=== PATIENT | female | born 1960 | race Caucasian/White ===

== ENCOUNTER → 2018-01-03 | Outpatient (CLI) | payer BC ==
[2018-01-03 14:26] LABS: Basophils % (A) 1 %; Eosinophils # (A) 0.2 k/uL (0-0.7); Eosinophils % (A) 2 %; HGB 16.5 gm/dL (11.4-16.0); Lymphocytes # (A) 2.6 k/uL (1.0-4.8); Lymphocytes % (A) 37 %; MCH 30.5 pg (25.0-35.0); MCHC 32.9 g/dL (31.0-37.0); MCV 92.5 fL (80.0-100.0); Mean Platelet Volume 6.8; Monocytes # (A) 0.5 k/uL (0-1.0); Monocytes % (A) 7 %; Neutrophils # (A) 3.6 k/uL (1.3-7.7); Neutrophils % (A) 51 %; Platelet Count 292 k/uL (150-450); RBC 5.41 m/uL (3.80-5.40); RDW 12.8 % (11.5-15.5); WBC 7.1 k/uL (3.8-10.6)
[2018-01-03 14:33] LABS: Potassium 3.8 mmol/L (3.5-5.1)
[2018-01-03 18:16] LABS: Albumin 4.5 g/dL (3.5-5.0); Calcium 9.9 mg/dL (8.4-10.2); Total Bilirubin 0.7 mg/dL (0.2-1.3)
== END | disposition home or self-care (01) ==
LOC: LABPAT 14:03
PROVIDERS: ATTEND Orthopaedic Surgery
DX: Z01.810 Encounter for preprocedural cardiovascular examination (principal); I10 Essential (primary) hypertension; M23.92 Unspecified internal derangement of left knee; Z01.812 Encounter for preprocedural laboratory examination
CPT/HCPCS: 80053; 82150; 83690; 85025; 93005

== ENCOUNTER 2018-01-06 09:17 | Day surgery (SDC) | payer BC ==
[2018-01-03 12:11] VITALS: BMI 30.4
--- NOTE | 2018-01-05 16:34 | HP ---
HISTORY AND PHYSICAL Surgery is scheduled for 01/06/18. Noemí Nye is a 57-year-old patient seen with progressive left knee pain. We discussed treatment options. She elected to proceed with left knee arthroscopy. Consent was obtained. PAST MEDICAL HISTORY: Asthma, hypertension, gastroesophageal reflux disease. PAST SURGICAL HISTORY: section, foot surgery. MEDICATIONS: Albuterol, estradiol, Flonase, Klonopin, lisinopril, Neurontin, Prozac, Singulair. ALLERGIES: CEFTIN, AVELOX, MONISTAT. SOCIAL HISTORY: The patient denies current tobacco use. PHYSICAL EXAMINATION: Evaluation of the left knee: Range of motion 0 to 120 degrees. Mild effusion. Tenderness medial joint line. Positive medial Niall's. Ligaments stable. Hip rotation without pain. Distal neurovascular exam intact. RADIOGRAPHS: Radiographs of the left knee revealed mild medial, lateral, moderate patellofemoral compartment osteoarthritis. MRI left knee revealed medial meniscal tear, patellofemoral joint osteoarthritis and joint effusion. IMPRESSION: Internal derangement, left knee with medial meniscal tear. PLAN: Left knee arthroscopy with partial meniscectomy and debridement. MMODL / IJN: [id number] /
[~2018-01-06 09:17] MED LIST: DEXAMETHASONE SOD PHOSPHATE 10 MG/ML 1 ML VIAL IV ONE; LACTATED RINGERS 1,000 ML IV SCH; MIDAZOLAM 2 MG/2 ML VIAL IV PRN; ONDANSETRON 4 MG/2 ML VIAL IVP ONE; Pre Op ABX Message 1 EACH MISC MISCELLANE ONE
[2018-01-06] MEDS ORDERED: CLINDAMYCIN 600 MG in DEXTROSE 5% IN WATER 50 ML IVPB STA ×2 (09:30)
[2018-01-06] MEDS ORDERED: LIDOCAINE 1% 20 ML VIAL (10MG/ML) FOR IV START INTRADERMA ONE (09:43)
[2018-01-06] MEDS ORDERED: SODIUM CHLORIDE 0.9% 1,000 ML IV ONE (10:51)
[2018-01-06] MEDS ORDERED: BUPIVACAINE (PF) 0.25% 30 ML VIAL SQ ONE ×2 (11:31→12:15)
[2018-01-06] MEDS ORDERED: SUCCINYLCHOLINE CHLORIDE VIAL 200 MG/10 ML VIAL IV ONE (11:46)
[2018-01-06] MEDS ORDERED: PHENYLEPHRINE-0.9% NACL SYG 1 MG/10 ML SYRINGE ONE (11:46)
[2018-01-06] MEDS ORDERED: PROPOFOL 10 MG/ML 20 ML VIAL IV ONE (11:46)
[2018-01-06] MEDS ORDERED: fentaNYL (PF) 50 MCG/ML 2 ML AMP ONE (11:46)
[2018-01-06] MEDS ORDERED: LIDOCAINE 1% INJ 10MG/ML (20 ML MDV) ONE (11:46)
[2018-01-06] MEDS ORDERED: MIDAZOLAM 2 MG/2 ML VIAL ONE (11:46)
--- NOTE | 2018-01-06 12:31 | P.OP ---
Date of Procedure: 01/06/18 Preoperative Diagnosis: Internal derangement left knee Postoperative Diagnosis: 1. Tear medial and lateral meniscus left knee 2. Grade 2 chondromalacia medial femoral condyle left knee 3. Grade 4 chondromalacia patellofemoral joint left knee 4. Reactive synovitis medial and suprapatellar compartments left knee Procedure(s) Performed: 1. Arthroscopic partial medial and lateral meniscectomy left knee 2. Arthroscopic chondroplasty medial femoral condyle left knee 3. Arthroscopic chondroplasty patellofemoral joint left knee 4. Arthroscopic partial synovectomy medial and suprapatellar compartments left knee Anesthesia: VINNIEA, local Surgeon: Jose Plata Estimated Blood Loss (ml): 10 Pathology: none sent Condition: stable Disposition: PACU Indications for Procedure: 57-year-old patient seen with progressive left knee pain. After treatment options were discussed, she elected to proceed with arthroscopy. Operative Findings: see description of procedure Description of Procedure: Patient was taken to the operative suite. Patient underwent a general anesthetic by the department of anesthesia. Patient was given preoperative antibiotics. The left lower extremity was placed in a well-padded arthroscopic leg bose. The left leg was prepped and draped in the normal sterile orthopedic fashion. A lateral parapatellar and suprapatellar incision was made. Trochars were inserted. Arthroscopy was initiated. Suprapatellar pouch revealed diffuse thick reactive synovitis. The patellofemoral joint appeared to articulate congruently. There was grade 4 chondromalacia of both the patella and femoral sulcus. There was exposed bony areas on both sides as well as peripheral osteochondral tears present.. The scope was guided into the medial gutter. No loose bodies or plica was identified. The scope was then guided into the medial compartment. A medial parapatellar incision was made. Trocar inserted followed by probe. there was tearing of the mid body and posterior horn medial meniscus. There was an area of grade 2 chondromalacia medial femoral condyle centrally with some osteochondral tears present. There was reactive synovitis anteriorly. I performed a partial medial meniscectomy down to stable tissue. I performed a chondroplasty of the medial femoral condyle down to stable tissue. I performed a partial synovectomy. The residual meniscus was stable. The residual osteochondral surface was stable. Scope and probe were then guided into the intercondylar notch. Cruciates were identified, probed and found to be stable. The scope and probe were then guided into lateral compartment. There was some radial tears in the midbody of the lateral meniscus. There was no significant chondromalacia present. No reactive synovitis. I performed a partial lateral meniscectomy down to stable tissue. The residual meniscus was stable. The scope was in guided back into the suprapatellar compartment. I introduced a motorized shaver into the suprapatellar compartment. I debrided some piecemeal fragments of meniscus I encountered. I performed a chondroplasty of the patella and femoral sulcus down to stable peripheral osteochondral tissue. I performed a partial synovectomy. The residual osteochondral surfaces appears stable we again did no exposed bony areas of both the patella and femoral sulcus. I took one more look around the entire knee, no residual debris. Instruments were now removed from the joint. The joint was infiltrated with .25% Marcaine. Steri-Strips were applied to the portal sites. Sterile dressings were applied. The patient was placed into a VIVIEN hose. No tourniquet was utilized. The patient was awakened, transferred to a bed and taken to recovery stable satisfactory condition.
[2018-01-06 12:43] VITALS: TEMP 96.8
[2018-01-06] MEDS: HYDROmorphone 0.5 MG/0.5 ML SYRINGE IVP PRN ×2 (12:52→13:01)
[2018-01-06 13:46] VITALS: RESP 16
[2018-01-06] MEDS ORDERED: HYDROcodone/APAP 5-325MG 1 EACH TAB PO ONE (13:53)
[2018-01-06 14:04] VITALS: BP 105/65; PULSE 64
== END 2018-01-06 14:51 | disposition home or self-care (01) ==
LOC: OR 09:17
PROVIDERS: ATTEND Orthopaedic Surgery
DX: S83.242A Other tear of medial meniscus, current injury, left knee, initial encounter (principal); S83.282A Other tear of lateral meniscus, current injury, left knee, initial encounter; X58.XXXA Exposure to other specified factors, initial encounter; M22.42 Chondromalacia patellae, left knee; M65.862 Other synovitis and tenosynovitis, left lower leg; J45.909 Unspecified asthma, uncomplicated; I10 Essential (primary) hypertension; K21.9 Gastro-esophageal reflux disease without esophagitis; E78.5 Hyperlipidemia, unspecified; N28.9 Disorder of kidney and ureter, unspecified; F41.9 Anxiety disorder, unspecified; F32.9 Major depressive disorder, single episode, unspecified; Z79.890 Hormone replacement therapy; Z79.51 Long term (current) use of inhaled steroids; Z79.891 Long term (current) use of opiate analgesic; Z79.899 Other long term (current) drug therapy; Z88.1 Allergy status to other antibiotic agents; Z88.8 Allergy status to other drugs, medicaments and biological substances
CPT/HCPCS: 29880; J2250; J0330; J1100; J2405; J2001; J3010; J2370; J2704; J1170

== ENCOUNTER → 2018-07-08 | Outpatient (CLI) | payer BC ==
--- NOTE | 2018-07-18 11:14 | MM ---
Reason for exam: screening (asymptomatic). Last mammogram was performed 6 years and 4 months ago. History: Patient had first child at age 31. Physical Findings: A clinical breast exam by your physician is recommended on an annual basis and results should be correlated with mammographic findings. MG 3D Screening Mammo W/Cad Bilateral CC and MLO view(s) were taken. Prior study comparison: June 22, 2008, bilateral digital screening mammogram. There are scattered fibroglandular densities. No suspicious abnormality. Anterior depth left lateral asymmetry is similar to 2008 as are left lower inner calcifications. ASSESSMENT: Benign, BI-RAD 2 RECOMMENDATION: Routine screening mammogram of both breasts in 1 year.
== END | disposition home or self-care (01) ==
LOC: RADMAMWWP 08:25
PROVIDERS: ATTEND Family Medicine
DX: Z12.31 Encounter for screening mammogram for malignant neoplasm of breast (principal)
CPT/HCPCS: 77063; 77067

== ENCOUNTER → 2020-06-21 | Outpatient (CLI) | payer BC ==
--- NOTE | 2020-06-21 10:03 | US ---
EXAMINATION TYPE: US abdomen limited DATE OF EXAM: 06/21/2020 COMPARISON: NONE CLINICAL HISTORY: 59-year-old female R74.89 Elevated liver enzymes. TECHNIQUE: Multiple sonographic images of the right upper quadrant are obtained. FINDINGS: EXAM MEASUREMENTS: Liver Length: 21.5 cm CBD: 0.3 cm Right Kidney: 12.1 x 4.2 x 5.2 cm Pancreas: wnl, tail obscured by overlying bowel gas Liver: Enlarged and echogenic, mildly attenuating. No focal lesion seen. Gallbladder: Surgically absent Evidence for sonographic Casillas's sign: No CBD: wnl Right Kidney: No hydronephrosis. IMPRESSION: Hepatomegaly (21.5 cm) with at least moderate hepatic steatosis. Status post cholecystectomy. No bili hanna ductal dilatation.
== END | disposition home or self-care (01) ==
LOC: RADUSWWP 08:51
PROVIDERS: ATTEND Family Medicine
DX: K76.0 Fatty (change of) liver, not elsewhere classified (principal); Z90.49 Acquired absence of other specified parts of digestive tract; R16.0 Hepatomegaly, not elsewhere classified
CPT/HCPCS: 76705

== ENCOUNTER → 2020-08-02 | Outpatient (CLI) | payer BC ==
--- NOTE | 2020-08-06 13:49 | MM ---
Reason for exam: screening (asymptomatic). Last mammogram was performed 2 years and 1 month ago. History: Patient had first child at age 31. Physical Findings: A clinical breast exam by your physician is recommended on an annual basis and results should be correlated with mammographic findings. MG Screening Mammo w CAD Bilateral CC and MLO view(s) were taken. Prior study comparison: July 08, 2018, bilateral MG 3d screening mammo w/cad. March 14, 2012, bilateral digital screening mammo w/CAD. There are scattered fibroglandular densities. There is chronic nodularity in the right breast. No significant changes when compared with prior studies. ASSESSMENT: Benign, BI-RAD 2 RECOMMENDATION: Routine screening mammogram of both breasts in 1 year.
== END | disposition home or self-care (01) ==
LOC: RADMAMWWP 08:55
PROVIDERS: ATTEND Family Medicine
DX: Z12.31 Encounter for screening mammogram for malignant neoplasm of breast (principal)
CPT/HCPCS: 77067

== ENCOUNTER 2021-10-23 01:46 | Emergency (ER) | payer BC ==
[2021-10-23] MEDS ORDERED: SODIUM CHLORIDE 0.9% 1,000 ML IV STA (02:12)
--- NOTE | 2021-10-23 02:13 | ED ---
Arrhythmia/Palpitations HPI - General Chief Complaint: Arrhythmia/Palpitations Stated Complaint: Palpitations Time Seen by Provider: 10/23/21 02:12 Source: patient Mode of arrival: wheelchair Limitations: no limitations - Related Data Home Medications Medication Instructions Recorded Confirmed ARIPiprazole [Abilify] 5 mg PO HS 09/23/15 01/03/18 Albuterol Inhaler (Mhu) [Ventolin 2 puff INHALATION Q4-6H PRN 09/23/15 01/03/18 Inhaler] Albuterol Nebulized [Ventolin 2.5 mg INHALATION Q6H PRN 09/23/15 01/06/18 Nebulized] Benztropine Mesylate [Cogentin] 0.5 mg PO BID 09/23/15 01/06/18 Budesonide-Formot 160-4.5 Mcg 2 puff INHALATION BID 09/23/15 01/06/18 [Symbicort 160-4.5 Mcg Inhaler] Fexofenadine HCl [Joanna Allergy] 180 mg PO DAILY 09/23/15 01/03/18 Fluticasone Nasal [place] [Flonase 2 spr INTRANASAL DAILY 09/23/15 01/03/18 Nasal [place]] clonazePAM [KlonoPIN] 0.5 mg PO BID PRN 09/23/15 01/06/18 diphenhydrAMINE [Benadryl] 25 mg PO DIRECTED PRN 09/23/15 01/06/18 lamoTRIgine [LaMICtal] 100 mg PO QAM 09/23/15 01/03/18 Aspirin [Adult Low Dose Aspirin EC] 81 mg PO DAILY 01/03/18 01/03/18 Atorvastatin [Lipitor] 20 mg PO DAILY 01/03/18 01/03/18 Cholecalciferol (Vitamin D3) 2,000 unit PO DAILY 01/03/18 01/03/18 [Vitamin D3] Omeprazole 20 mg PO HS 01/03/18 01/03/18 lisinopriL [Zestril] 30 mg PO QAM 01/03/18 01/06/18 Previous Rx's Medication Instructions Recorded Omeprazole [PriLOSEC] 20 mg PO AC-BRKFST capsule. 04/23/15 Hydrocodone/Acetaminophen [[place] 1 each PO Q6HR PRN #30 tab 09/26/15 5-325] HYDROcodone/APAP 7.5-325MG [[place] 1 tab PO Q6HR PRN #30 tab 01/06/18 7.5-325] Allergies Allergy/AdvReac Type Severity Reaction Status Date / Time cefuroxime axetil Allergy Anaphylaxis Verified 10/23/21 02:04 [From Ceftin] moxifloxacin HCl Allergy Rash/Hives Verified 10/23/21 02:04 [From Avelox] tioconazole Allergy Rash/Hives Verified 10/23/21 02:04 [From Monistat 1 (tioconazole)] Review of Systems ROS Statement: Those systems with pertinent positive or pertinent negative responses have been documented in the HPI. ROS Other: All systems not noted in ROS Statement are negative. Past Medical History Past Medical History: Atrial Fibrillation, Asthma, Fibromyalgia, GERD/Reflux, Hyperlipidemia, Hypertension, Osteoarthritis (OA), Sleep Apnea/CPAP/BIPAP Additional Past Medical History / Comment(s): Hx sinusititis with fluid on the ear, ulcers, IBS, degenerative tendonistis, bursitis, neuropathy. "Sees Dr Mendez every 6 months for strong family history of cardiac problems and her own hx of triple heartbeat and palpitations." Currently ill with the stomach flu, has appointment with Dr marks to see if still ok to proceed with surgery. History of Any Multi-Drug Resistant Organisms: None Reported Past Surgical History: Section, Cholecystectomy, Hernia Repair, Hysterectomy Additional Past Surgical History / Comment(s): Section X3, sinus surgery, foot surgery, colonoscopy, D&C. 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 fib with RVR 144 QRS 88 QTc 470 Medical Decision Making - Lab Data Result diagrams: 10/23/21 02:27 10/23/21 02:27 Lab Results 10/23/21 10/23/21 10/23/21 Range/Units 02:27 02: 02:27 WBC 11.1 H (3.8-10.6) k/uL RBC 4.76 (3.80-5.40) m/uL Hgb 15.3 (11.4-16.0) gm/dL Hct 44.6 (34.0-46.0) % MCV 93.7 (80.0-100.0) fL MCH 32.0 (25.0-35.0) pg MCHC 34.2 (31.0-37.0) g/dL RDW 13.1 (11.5-15.5) % Plt Count 301 (150-450) k/uL MPV 7.3 Neutrophils % 52 % Lymphocytes % 33 % Monocytes % 5 % Eosinophils % 7 % Basophils % 1 % Neutrophils # 5.7 (1.3-7.7) k/uL Lymphocytes # 3.7 (1.0-4.8) k/uL Monocytes # 0.6 (0-1.0) k/uL Eosinophils # 0.8 H (0-0.7) k/uL Basophils # 0.1 (0-0.2) k/uL PT 10.5 (9.0-12.0) sec INR 1.0 (<1.2) APTT 20.9 L (22.0-30.0) sec Sodium (137-145) mmol/L Potassium (3.5-5.1) mmol/L Chloride (98-107) mmol/L Carbon Dioxide (22-30) mmol/L Anion Gap mmol/L BUN (7-17) mg/dL Creatinine (0.52-1.04) mg/dL Est GFR (CKD-EPI)AfAm (>60 ml/min/1.73 sqM) Est GFR (CKD-EPI)NonAf (>60 ml/min/1.73 sqM) Glucose (74-99) mg/dL Plasma Lactic Acid Laith (0.7-2.0) mmol/L Calcium (8.4-10.2) mg/dL Phosphorus (2.5-4.5) mg/dL Magnesium (1.6-2.3) mg/dL Total Bilirubin (0.2-1.3) mg/dL AST (14-36) U/L ALT (4-34) U/L Alkaline Phosphatase (38-126) U/L Troponin I (0.000-0.034) ng/mL NT-Pro-B Natriuret Pep pg/mL Total Protein (6.3-8.2) g/dL Albumin (3.5-5.0) g/dL Urine Color Light Yellow Urine Appearance Clear (Clear) Urine pH 5.5 (5.0-8.0) Ur Specific [place] 1.005 (1.001-1.035) Urine Protein Negative (Negative) Urine Glucose (UA) Negative (Negative) Urine Ketones Negative (Negative) Urine Blood Negative (Negative) Urine Nitrite Negative (Negative) Urine Bilirubin Negative (Negative) Urine Urobilinogen <2.0 (<2.0) mg/dL Ur Leukocyte Esterase Large H (Negative) Urine RBC 2 (0-5) /hpf Urine WBC 23 H (0-5) /hpf Ur Squamous Epith Cells 1 (0-4) /hpf Urine Bacteria Rare H (None) /hpf 10/23/21 10/23/21 10/23/21 Range/Units 02:27 02:27 02:27 WBC (3.8-10.6) k/uL RBC (3.80-5.40) m/uL Hgb (11.4-16.0) gm/dL Hct (34.0-46.0) % MCV (80.0-100.0) fL MCH (25.0-35.0) pg MCHC (31.0-37.0) g/dL RDW (11.5-15.5) % Plt Count (150-450) k/uL MPV Neutrophils % % Lymphocytes % % Monocytes % % Eosinophils % % Basophils % % Neutrophils # (1.3-7.7) k/uL Lymphocytes # (1.0-4.8) k/uL Monocytes # (0-1.0) k/uL Eosinophils # (0-0.7) k/uL Basophils # (0-0.2) k/uL PT (9.0-12.0) sec INR (<1.2) APTT (22.0-30.0) sec Sodium 137 (137-145) mmol/L Potassium 3.8 (3.5-5.1) mmol/L Chloride 107 (98-107) mmol/L Carbon Dioxide 21 L (22-30) mmol/L Anion Gap 9 mmol/L BUN 17 (7-17) mg/dL Creatinine 0.71 (0.52-1.04) mg/dL Est GFR (CKD-EPI)AfAm >90 (>60 ml/min/1.73 sqM) Est GFR (CKD-EPI)NonAf >90 (>60 ml/min/1.73 sqM) Glucose 125 H (74-99) mg/dL Plasma Lactic Acid Laith 1.6 (0.7-2.0) mmol/L Calcium 10.3 H (8.4-10.2) mg/dL Phosphorus 3.9 (2.5-4.5) mg/dL Magnesium 1.7 (1.6-2.3) mg/dL Total Bilirubin 0.4 (0.2-1.3) mg/dL AST 33 (14-36) U/L ALT 34 (4-34) U/L Alkaline Phosphatase 85 (38-126) U/L Troponin I <0.012 (0.000-0.034) ng/mL NT-Pro-B Natriuret Pep pg/mL Total Protein 6.7 (6.3-8.2) g/dL Albumin 4.4 (3.5-5.0) g/dL Urine Color Urine Appearance (Clear) Urine pH (5.0-8.0) Ur Specific [place] (1.001-1.035) Urine Protein (Negative) Urine Glucose (UA) (Negative) Urine Ketones (Negative) Urine Blood (Negative) Urine Nitrite (Negative) Urine Bilirubin (Negative) Urine Urobilinogen (<2.0) mg/dL Ur Leukocyte Esterase (Negative) Urine RBC (0-5) /hpf Urine WBC (0-5) /hpf Ur Squamous Epith Cells (0-4) /hpf Urine Bacteria (None) /hpf 10/23/21 Range/Units 02:27 WBC (3.8-10.6) k/uL RBC (3.80-5.40) m/uL Hgb (11.4-16.0) gm/dL Hct (34.0-46.0) % MCV (80.0-100.0) fL MCH (25.0-35.0) pg MCHC (31.0-37.0) g/dL RDW (11.5-15.5) % Plt Count (150-450) k/uL MPV Neutrophils % % Lymphocytes % % Monocytes % % Eosinophils % % Basophils % % Neutrophils # (1.3-7.7) k/uL Lymphocytes # (1.0-4.8) k/uL Monocytes # (0-1.0) k/uL Eosinophils # (0-0.7) k/uL Basophils # (0-0.2) k/uL PT (9.0-12.0) sec INR (<1.2) APTT (22.0-30.0) sec Sodium (137-145) mmol/L Potassium (3.5-5.1) mmol/L Chloride (98-107) mmol/L Carbon Dioxide (22-30) mmol/L Anion Gap mmol/L BUN (7-17) mg/dL Creatinine (0.52-1.04) mg/dL Est GFR (CKD-EPI)AfAm (>60 ml/min/1.73 sqM) Est GFR (CKD-EPI)NonAf (>60 ml/min/1.73 sqM) Glucose (74-99) mg/dL Plasma Lactic Acid Laith (0.7-2.0) mmol/L Calcium (8.4-10.2) mg/dL Phosphorus (2.5-4.5) mg/dL Magnesium (1.6-2.3) mg/dL Total Bilirubin (0.2-1.3) mg/dL AST (14-36) U/L ALT (4-34) U/L Alkaline Phosphatase (38-126) U/L Troponin I (0.000-0.034) ng/mL NT-Pro-B Natriuret Pep 54 pg/mL Total Protein (6.3-8.2) g/dL Albumin (3.5-5.0) g/dL Urine Color Urine Appearance (Clear) Urine pH (5.0-8.0) Ur Specific [place] (1.001-1.035) Urine Protein (Negative) Urine Glucose (UA) (Negative) Urine Ketones (Negative) Urine Blood (Negative) Urine Nitrite (Negative) Urine Bilirubin (Negative) Urine Urobilinogen (<2.0) mg/dL Ur Leukocyte Esterase (Negative) Urine RBC (0-5) /hpf Urine WBC (0-5) /hpf Ur Squamous Epith Cells (0-4) /hpf Urine Bacteria (None) /hpf Disposition Clinical Impression: Atrial fibrillation, Tachycardia, Palpitations, Atrial fibrillation with RVR Disposition: HOME SELF-CARE Condition: Good Instructions (If sedation given, give patient instructions): A-fib (Atrial Fibrillation) (ED) Is patient prescribed a controlled substance at d/c from ED?: No Referrals: Alvarado Rousseau MD [Primary Care Provider] - 1-2 days
[2021-10-23] MEDS ORDERED: DILTIAZEM DRIP BOLUS FROM BAG 1 MG SOLN IV ONE (02:33)
[2021-10-23 02:51] VITALS: RESP 18
[2021-10-23 02:51] LABS: Basophils # (A) 0.1 k/uL (0-0.2); Basophils % (A) 1 %; Eosinophils # (A) 0.8 k/uL (0-0.7); Eosinophils % (A) 7 %; HCT 44.6 % (34.0-46.0); HGB 15.3 gm/dL (11.4-16.0); Lymphocytes # (A) 3.7 k/uL (1.0-4.8); Lymphocytes % (A) 33 %; MCHC 34.2 g/dL (31.0-37.0); MCV 93.7 fL (80.0-100.0); Mean Platelet Volume 7.3; Monocytes # (A) 0.6 k/uL (0-1.0); Monocytes % (A) 5 %; Neutrophils # (A) 5.7 k/uL (1.3-7.7); Neutrophils % (A) 52 %; Platelet Count 301 k/uL (150-450); RBC 4.76 m/uL (3.80-5.40); RDW 13.1 % (11.5-15.5); WBC 11.1 k/uL (3.8-10.6)
[2021-10-23 02:55] LABS: Appearance,Urine Clear (Clear); Bacteria,Urine Rare /hpf; Bilirubin,Urine Negative (Negative); Blood,Urine Negative (Negative); Color,Urine Light Yellow; Glucose,Urine (UA) Negative (Negative); Ketones,Urine Negative (Negative); Leukocyte Esterase,Urine Large (Negative); Nitrite,Urine Negative (Negative); PH, Urine 5.5 (5.0-8.0); Protein,Urine Negative (Negative); RBC,Urine 2 /hpf (0-5); Specific Gravity,Urine 1.005 (1.001-1.035); Squamous Epithelial Cell,Urine 1 /hpf (0-4); Urobilinogen,Urine <2.0 mg/dL (<2.0); WBC,Urine 23 /hpf (0-5)
[2021-10-23] MEDS ORDERED: DILTIAZEM 125 MG in SODIUM CHLORIDE 0.9% 100 ML IV SCH (03:00)
[2021-10-23 03:08] LABS: Prothrombin Time 10.5 sec (9.0-12.0)
[2021-10-23 03:09] LABS: Partial Thromboplastin Time 20.9 sec (22.0-30.0)
[2021-10-23 03:13] LABS: ALT 34 U/L (4-34); AST 33 U/L (14-36); African American GFR (CKD) >90 (>60 ml/min/1.73 sqM); Albumin 4.4 g/dL (3.5-5.0); Alkaline Phosphatase 85 U/L (38-126); Anion Gap 9 mmol/L; Blood Urea Nitrogen 17 mg/dL (7-17); Calcium 10.3 mg/dL (8.4-10.2); Carbon Dioxide 21 mmol/L (22-30); Chloride 107 mmol/L (98-107); Glucose 125 mg/dL (74-99); Magnesium 1.7 mg/dL (1.6-2.3); Non-African American GFR(CKD) >90 (>60 ml/min/1.73 sqM); Phosphorus 3.9 mg/dL (2.5-4.5); Potassium 3.8 mmol/L (3.5-5.1); Sodium 137 mmol/L (137-145); Total Bilirubin 0.4 mg/dL (0.2-1.3); Total Protein 6.7 g/dL (6.3-8.2)
[2021-10-23 04:35] VITALS: BP 110/80; PULSE 79; TEMP 97.6
== END 2021-10-23 04:35 | disposition home or self-care (01) ==
LOC: EC 01:46
DX: I48.20 Chronic atrial fibrillation, unspecified (principal); R00.2 Palpitations; R00.0 Tachycardia, unspecified; K21.9 Gastro-esophageal reflux disease without esophagitis; E78.5 Hyperlipidemia, unspecified; J45.909 Unspecified asthma, uncomplicated; I10 Essential (primary) hypertension; M19.90 Unspecified osteoarthritis, unspecified site; F41.9 Anxiety disorder, unspecified; F32.A Depression, unspecified; Z87.891 Personal history of nicotine dependence; Z72.89 Other problems related to lifestyle; Z79.82 Long term (current) use of aspirin; Z79.51 Long term (current) use of inhaled steroids; Z79.899 Other long term (current) drug therapy
CPT/HCPCS: 36415; 80053; 81001; 83605; 83735; 83880; 84100; 84484; 85025; 85610; 85730; 87086; 93005; 96365; 96366; 96375; 99285

== ENCOUNTER → 2022-01-02 | Outpatient (CLI) | payer BC ==
--- NOTE | 2022-01-05 10:03 | MM ---
Reason for exam: screening (asymptomatic). Last mammogram was performed 1 year and 5 months ago. History: Patient is postmenopausal and had first child at age 31. Physical Findings: A clinical breast exam by your physician is recommended on an annual basis and results should be correlated with mammographic findings. MG Screening Mammo w CAD Bilateral CC and MLO view(s) were taken. Prior study comparison: August 02, 2020, bilateral MG screening mammo w CAD. July 08, 2018, bilateral MG 3d screening mammo w/cad. There are scattered fibroglandular densities. Stable benign calcifications. There is no discrete abnormality. No significant changes when compared with prior studies. ASSESSMENT: Benign, BI-RAD 2 RECOMMENDATION: Routine screening mammogram of both breasts in 1 year.
== END | disposition home or self-care (01) ==
LOC: RADMAMWWP 10:57
PROVIDERS: ATTEND Family Medicine
DX: Z12.31 Encounter for screening mammogram for malignant neoplasm of breast (principal); Z78.0 Asymptomatic menopausal state
CPT/HCPCS: 77067

== ENCOUNTER 2022-01-06 07:36 | Day surgery (SDC) | payer BC ==
[~2022-01-06 07:36] MED LIST changes: -DEXAMETHASONE SOD PHOSPHATE 10 MG/ML 1 ML VIAL IV ONE; +LIDOCAINE 1% (10MG/ML) FOR IV START INTRADERMA PRN; -MIDAZOLAM 2 MG/2 ML VIAL IV PRN; -ONDANSETRON 4 MG/2 ML VIAL IVP ONE; -Pre Op ABX Message 1 EACH MISC MISCELLANE ONE
[2022-01-06 07:55] VITALS: RESP 16; TEMP 97.5
[2022-01-06] MEDS ORDERED: LIDOCAINE 1% INJ 10MG/ML (20 ML MDV) ONE (08:32)
[2022-01-06] MEDS ORDERED: PROPOFOL 10 MG/ML 20 ML VIAL IV ONE (08:32)
--- NOTE | 2022-01-06 08:56 | P.PCN ---
Date of Procedure: 01/06/22 Procedure(s) Performed: BRIEF HISTORY: Patient is a 61-year-old pleasant white female scheduled for an elective colonoscopy as a part of screening for colorectal neoplasia. Her last colonoscopy was 10 years ago. PROCEDURE PERFORMED: Colonoscopy with snare polypectomy . PREOPERATIVE DIAGNOSIS: screening for colon cancer. IV sedation per Anesthesia. PROCEDURE: After informed consent was obtained, the patient, was brought into the endoscopy unit. IV sedation was administered by Anesthesia under continuous monitoring. Digital rectal examination was normal. Initially the Olympus CF-160 flexible video colonoscope was then inserted in the rectum, gradually advanced into the cecum without any difficulty. Careful examination was performed as the scope was gradually being withdrawn. Ileocecal valve and the appendiceal orifice were visualized and appeared normal. Prep was excellent. Mucosa of the cecum,appeared normal. In the ascending colon there was a 3 mm polyp removed by snare polypectomy. In the transverse colon there was a 5 mm polyp removed by snare polypectomy. The descending colon there was a 1 cm flat polyp removed by snare polypectomy. Rest of the ascending colon, transverse colon, descending colon, sigmoid colon, and rectum appeared normal.sigmoid colon there was a 3 mm polyp removed by snare polypectomy Retroflexion was performed in the rectum and no lesions were seen. The patient tolerated the procedure well. IMPRESSION: 3 mm ascending colon polyp status post polypectomy 5 mm transverse colon polyp status post polypectomy 1 cm flat descending colon polyp serous posterior polypectomy 3 mm sigmoid polyp status post snare polypectomy RECOMMENDATIONS: Findings of this examination were discussed with the patient as well as a family. She was advised to follow with the biopsy results. If the biopsy reveals adenoma she can have a repeat colonoscopy in 3-5 years.
[2022-01-06 09:43] VITALS: BP 101/65; PULSE 71
== END 2022-01-06 10:07 | disposition home or self-care (01) ==
LOC: ORWHC2ENDO 07:36
PROVIDERS: ATTEND Internal Medicine Gastroenterology
DX: Z12.11 Encounter for screening for malignant neoplasm of colon (principal); D12.2 Benign neoplasm of ascending colon; D12.4 Benign neoplasm of descending colon; D12.3 Benign neoplasm of transverse colon; K63.5 Polyp of colon; K21.9 Gastro-esophageal reflux disease without esophagitis; I48.91 Unspecified atrial fibrillation; I10 Essential (primary) hypertension; E78.5 Hyperlipidemia, unspecified; J45.909 Unspecified asthma, uncomplicated; G47.33 Obstructive sleep apnea (adult) (pediatric); Z87.891 Personal history of nicotine dependence; F41.9 Anxiety disorder, unspecified; F32.A Depression, unspecified; G62.9 Polyneuropathy, unspecified; M79.7 Fibromyalgia; Z98.891 History of uterine scar from previous surgery; Z90.710 Acquired absence of both cervix and uterus; Z98.890 Other specified postprocedural states; Z79.01 Long term (current) use of anticoagulants; Z79.51 Long term (current) use of inhaled steroids; Z79.899 Other long term (current) drug therapy; Z88.1 Allergy status to other antibiotic agents; Z88.3 Allergy status to other anti-infective agents
CPT/HCPCS: 45385; J2001; J2704; 88305

== ENCOUNTER → 2022-03-24 | Outpatient (CLI) | payer BC ==
[2022-03-24 19:33] LABS: African American GFR (CKD) 108.4 (60.0-200.0); BUN/Creat Ratio 26.14 Ratio (12.00-20.00); Blood Urea Nitrogen 18.3 mg/dL (9.0-27.0); Calcium 9.4 mg/dL (8.7-10.3); Non-African American GFR(CKD) 93.5 (60.0-200.0); Potassium 4.2 mmol/L (3.5-5.5)
[2022-03-24 21:00] LABS: HCT 41.6 % (37.2-46.3); HGB 13.6 g/dL (12.0-15.0); MCH 31.1 pg (27.0-32.0); MCHC 32.7 g/dL (32.0-37.0); NRBC Per 100 WBC 0 /100 WBCS (0.0-0.0); Platelet Count 281 X 10*3/uL (140-440); RBC 4.38 X 10*6/uL (4.10-5.20); RDW 13.5 % (11.5-14.5); WBC 9.46 X 10*3/uL (4.50-10.00)
== END | disposition home or self-care (01) ==
LOC: LABPAT 12:40
PROVIDERS: ATTEND Internal Medicine Clinical Cardiac Electrophysiology
DX: Z01.812 Encounter for preprocedural laboratory examination (principal); I48.0 Paroxysmal atrial fibrillation; I10 Essential (primary) hypertension
CPT/HCPCS: 36415; 80048; 85027

== ENCOUNTER → 2022-03-26 | Day surgery (SDC) | payer BC ==
[2022-03-24 15:14] VITALS: BMI 33.5
[~2022-03-26] MED LIST changes: +DEXAMETHASONE SOD PHOSPHATE 4 MG/ML 1 ML VIAL IV ONE; +MIDAZOLAM 2 MG/2 ML VIAL IV PRN; +ONDANSETRON 4 MG/2 ML VIAL IVP ONE; +ONDANSETRON 4 MG/2 ML VIAL IVP PRN; +SODIUM CHLORIDE 0.9% 1,000 ML IV SCH; +fentaNYL (PF) 50 MCG/ML 2 ML AMP IV PRN
== END ==
LOC: CATHEP 13:19
PROVIDERS: ATTEND Internal Medicine Clinical Cardiac Electrophysiology
DX: I48.0 Paroxysmal atrial fibrillation (principal); I10 Essential (primary) hypertension; G47.33 Obstructive sleep apnea (adult) (pediatric); E78.5 Hyperlipidemia, unspecified; Z53.9 Procedure and treatment not carried out, unspecified reason; Z82.49 Family history of ischemic heart disease and other diseases of the circulatory system; Z72.0 Tobacco use; Z79.51 Long term (current) use of inhaled steroids; Z79.899 Other long term (current) drug therapy; Z88.1 Allergy status to other antibiotic agents; Z88.8 Allergy status to other drugs, medicaments and biological substances

== ENCOUNTER 2022-03-30 07:40 | Day surgery (SDC) | payer BC ==
[~2022-03-30 07:40] MED LIST changes: -DEXAMETHASONE SOD PHOSPHATE 4 MG/ML 1 ML VIAL IV ONE; -LACTATED RINGERS 1,000 ML IV SCH; -LIDOCAINE 1% (10MG/ML) FOR IV START INTRADERMA PRN; -MIDAZOLAM 2 MG/2 ML VIAL IV PRN; -ONDANSETRON 4 MG/2 ML VIAL IVP ONE; -ONDANSETRON 4 MG/2 ML VIAL IVP PRN; -fentaNYL (PF) 50 MCG/ML 2 ML AMP IV PRN
[2022-03-30] MEDS ORDERED: SODIUM CHLORIDE 0.9% 1,000 ML IV ONE ×2 (07:59→12:22)
[2022-03-30] MEDS ORDERED: MIDAZOLAM 2 MG/2 ML VIAL IV STA (08:30)
[2022-03-30] MEDS ORDERED: MIDAZOLAM 2 MG/2 ML VIAL ONE (09:28)
[2022-03-30] MEDS ORDERED: ONDANSETRON 4 MG/2 ML VIAL ONE (09:28)
[2022-03-30] MEDS ORDERED: SUCCINYLCHOLINE CHLORIDE 100 MG/5 ML SYR IV ONE (09:28)
[2022-03-30] MEDS ORDERED: PHENYLEPHRINE-0.9% NACL SYG 1,000 MCG/10 ML SYRINGE ONE (09:28)
[2022-03-30] MEDS ORDERED: PROPOFOL 10 MG/ML 20 ML VIAL IV ONE (09:28)
[2022-03-30] MEDS ORDERED: ISOPROTERENOL 250 MCG/1.25 ML SYR IV ONE (09:28)
[2022-03-30] MEDS ORDERED: HEPARIN SODIUM,PORCINE 10,000 UNIT/ML 1 ML VIAL ONE (09:28)
[2022-03-30] MEDS ORDERED: ROCURONIUM 10 MG/ML (5 ML VIAL) IV ONE (09:28)
[2022-03-30] MEDS ORDERED: fentaNYL (PF) 50 MCG/ML 2 ML AMP ONE (09:28)
[2022-03-30] MEDS ORDERED: DEXAMETHASONE SOD PHOSPHATE 10 MG/ML 1 ML VIAL ONE (09:28)
[2022-03-30] MEDS ORDERED: HEPARIN SOD,PORK IN 0.45% NACL 25,000 UNIT in 0.45% NACL 1 250ML.BAG IV ONE (10:01)
[2022-03-30] MEDS ORDERED: LIDOCAINE 1% INJ 10MG/ML (30 ML VIAL-PF) SQ ONE (10:23)
[2022-03-30] MEDS ORDERED: IOPAMIDOL-370 100ML BTL INJ ONE (12:20)
[2022-03-30] MEDS ORDERED: clonazePAM 0.5 MG TAB PO PRN (13:14)
[2022-03-30] MEDS ORDERED: ACETAMINOPHEN IV (For NPO) 1,000 MG in EMPTY BAG 1 BAG IVPB ONE (13:16)
--- NOTE | 2022-03-30 13:19 | P.HPCAR ---
History of Present Illness This is Dr. Gagnon dictating an H/P on this patient The patient was interviewed and examined IMPRESSION / ASSESSMENT: Paroxysmal atrial fibrillation Increased BMI Hypertension Dyslipidemia PLAN: A. fib ablation HPI Patient experiences recurrent episodes of palpitations. She is documented atrial fibrillation. Despite medical treatment she is experiencing breakthrough episodes She complains of recurrent palpitations and has not does of episodes in the last several months The YAHIR VASC is 2 ROS: No fever chills or rigors, no cough, phlegm or expectoration, no nausea, vomiting or diarrhea, no hematuria, dysuria, no musculoskeletal complaints, no strokes or seizures, no skin lesions. EXAMINATION: Afebrile ulcerative in the 70s Blood pressure 108/49 mmHg Breath sounds are clear No rhonchi no crackles REVIEW OF LABS, ECG & MEDICAL DATA Coronavirus PCR undetectable Physical Exam Vitals: Vital Signs Temp Pulse Pulse Resp BP Pulse Ox 03/30/22 13:15 72 16 108/49 94 L 03/30/22 13:00 78 16 107/52 96 03/30/22 12:52 81 16 113/58 99 03/30/22 08:10 98.4 F 73 16 105/57 96 Intake and Output 03/29/22 03/30/22 03/30/22 22:59 06:59 14:59 Intake Total 1195 Balance 1195 Intake: IV 1195 Other: Weight 98.21 kg Past Medical History Past Medical History: Atrial Fibrillation, Asthma, Fibromyalgia, GERD/Reflux, Hyperlipidemia, Hypertension, Osteoarthritis (OA), Sleep Apnea/CPAP/BIPAP Additional Past Medical History / Comment(s): Hx sinusititis with fluid on the ear, ulcers, IBS, degenerative tendonistis, bursitis, neuropathy. "Sees Dr Mendez every 6 months for strong family history of cardiac problems and her own hx of triple heartbeat and palpitations." Currently ill with the stomach flu, has appointment with Dr marks to see if still ok to proceed with surgery. History of Any Multi-Drug Resistant Organisms: None Reported Past Surgical History: Section, Cholecystectomy, Hernia Repair, Hysterectomy Additional Past Surgical History / Comment(s): Section X3, sinus surgery, foot surgery, colonoscopy, D&C. Past Anesthesia/Blood Transfusion Reactions: No Reported Reaction Additional Past Anesthesia/Blood Transfusion Reaction / Comment(s): AFTER SPINAL ANESTHESIA ONCE, NEEDED BLOOD PATCH Smoking Status: Former smoker - Past Family History Mother Family Medical History: No Reported History Physical Examination Vital Signs Temp Pulse Pulse Resp BP Pulse Ox 03/30/22 13:15 72 16 108/49 94 L 03/30/22 13:00 78 16 107/52 96 03/30/22 12:52 81 16 113/58 99 03/30/22 08:10 98.4 F 73 16 105/57 96 Intake and Output 03/29/22 03/30/22 03/30/22 22:59 06:59 14:59 Intake Total 1195 Balance 1195 Intake: IV 1195 Other: Weight 98.21 kg Results Current Medications Generic Name Dose Route Start Last Admin Trade Name Freq PRN Reason Stop Dose Admin Acetaminophen 650 mg 03/30/22 13:16 Acetaminophen Tab 325 Mg Tab PO Q6HR PRN Mild Pain Apixaban 5 mg 03/30/22 21:00 Apixaban 5 Mg Tab PO BID ZAINAB Protocol Aripiprazole 5 mg 03/30/22 21:00 Aripiprazole 5 Mg Tab PO HS ZAINAB Atorvastatin Calcium 40 mg 03/30/22 21:00 Atorvastatin 40 Mg Tab PO HS ZAINAB Budesonide/Formoterol Fumarate 2 puff 03/30/22 21:00 Symbicort 160-4.5 Mcg Inhaler INHALATION BID ZAINAB Bupropion HCl 75 mg 03/31/22 09:00 Bupropion 75 Mg Tab PO QAM ZAINAB Clonazepam 0.5 mg 03/30/22 13:14 Clonazepam 0.5 Mg Tab PO HS PRN Anxiety Hydrochlorothiazide 25 mg 03/31/22 09:00 Hydrochlorothiazide 25 Mg Tab PO QAM [facility] Acetaminophen 1,000 mg/ IV 100 mls @ 400 mls/hr 03/30/22 13:16 Solution IVPB 03/30/22 13:30 ONCE ONE Lamotrigine 100 mg 03/31/22 09:00 Lamotrigine 100 Mg Tab PO QAM [facility] Metoprolol Tartrate 25 mg 03/30/22 21:00 Metoprolol Tartrate 25 Mg Tab PO BID ZAINAB Non-Formulary Medication 15 mg 03/30/22 21:00 Lisinopril [Lisinopril] PO BID ZAINAB Non-Formulary Medication 20 mg 03/30/22 21:00 Omeprazole [Omeprazole] PO BID ZAINAB Sodium Chloride 12 ml 03/30/22 13:16 Sodium Chloride 0.9% Flush 10 Ml Syringe IV Q12HR PRN Line Flush Intake and Output 03/29/22 03/30/22 03/30/22 22:59 06:59 14:59 Intake Total 1195 Balance 1195 Intake: IV 1195 Other: Weight 98.21 kg Patient Weight 03/31/22 06:59 Weight 98.21 kg
--- NOTE | 2022-03-30 13:26 | P.EPPROC ---
- EP Procedure Note Electrophysiology Procedure Note: PROCEDURE A. fib ablation DIAGNOSIS Atrial fibrillation, symptomatic, refractory to therapy RESULT No left atrial appendage mass seen on intracardiac echo Successful A. fib ablation/pulmonary vein isolation of all veins using cryo- ablation Ablation the left atrial septum Complete entrance block in all 4 veins confirmed No evidence for phrenic nerve injury Esophageal deflection YES with temperature/distance measurements PROCEDURE DETAILS Patient was brought to the EP lab in a fasting state after obtaining written informed consent. Procedure performed under general anesthesia Esophagus was intubated. Esophageal temperature monitoring with circa catheter. Esophageal deflection with an endoscope to avoid hypothermia of the esophagus. After initial muscle relaxant use, muscle relaxants were not given thereafter in order to assess phrenic nerve during procedure. Patient prepped and draped as per protocol Cryo ablation-set up with standard preparation of the cryoablation tools done. Femoral Venous access obtained on the right and left groins and sheaths placed Diagnostic catheters for the high right atrium, phrenic nerve stimulation and pacing, His bundle, coronary sinus placed Intracardiac echo catheter placed. Long sheath placed in the right atrium Left and right transseptal catheterization performed under intracardiac echo guidance. Intravenous heparin with aCT above 300 Later, catheter positioning and balloon positioning in the left atrium and pulmonary veins, under intracardiac echo guidance Diagnostic EP study with coronary sinus pacing and recording Baseline measurements: Sinus cycle length 890 ms, DE interval 151 ms, QRS 100 ms QT 388 ms Sinus recovery times at 600, 504 100 ms were 950, 1006 and 1042 ms AV node Wenckebach block 220 ms Transseptal catheterization performed RA pressure 17/12/15 LA pressure 35/14/24 Transseptal catheterization performed with standard sheath. The cryoablation sheath was then placed with an over the wire exchange without any acute complications. The cryoablation balloon was placed in the office of each pulmonary vein and all 4 pulmonary veins were isolated. IV dye was injected to confirm occlusion. Goal: achieve complete occlusion of the pulmonary vein, achieve -30 degrees C at 30 seconds and achieve -40 degrees C at 60 seconds and a time to effect of less than 60 seconds. If not, the balloon was repositioned to obtain this result After completion of Cryoblation with durations from 180-240 seconds, entrance block was confirmed with the Attain circular catheter in a roving fashion around the antrum of the pulmonary veins Phrenic nerve pacing was performed from the SVC, right innominate vein area and diaphragm voltage was monitored. Diaphragmatic contractions were also monitored manually for strength of contraction. At the end of the procedure the Achieve catheter was once again used to check fo r entrance block Phrenic nerve stimulation was performed to confirm diaphragmatic stimulation the end of the procedure Linear ablation was also performed on the left atrial septum after cannulating the right middle vein with the achieve catheter Excellent septal position of the balloon. Elimination of electrograms in that region Cine fluoroscopy was performed at the very end of the procedure to confirm movement of both diaphragms with inspiration and expiration At the end of the procedure the patient was extubated Venous sheaths were removed and hemostasis assured with a closure device PROCEDURES PERFORMED Diagnostic EP study CS pacing and recording Left and right transseptal catheterization Catheter the mapping of the tachycardia Intracardiac echocardiography Pulmonary vein isolation with transseptal and comprehensive EPS, 39730 Drug infusion, +[id number] Linear ablation, left atrium, +[id number]
--- NOTE | 2022-03-30 13:28 | P.PRLE ---
RE: Noemí Nye Salena Dowd underwent successful A. fib ablation/pulmonary vein isolation and septal ablation Hopefully this results in a significant reduction in her a few episodes Her blood pressure today was well controlled She will continue anticoagulation for a minimum of 3 more months Her YAHIR VASC score is at least 2 Thank you for entrusting me with the care of the patient Warm regards Sincerely Demetrio Gagnon
[2022-03-30] MEDS: ACETAMINOPHEN TAB 325 MG TAB PO PRN ×2 (14:05→19:38)
[2022-03-30 17:10] VITALS: RESP 18
[2022-03-30] MEDS: METOPROLOL TARTRATE 25 MG TAB PO SCH (20:36)
[2022-03-30] MEDS: APIXABAN 5 MG TAB PO SCH (20:36)
[2022-03-30] MEDS: lisinopriL 10 MG TAB PO SCH (20:36)
[2022-03-30] MEDS: SYMBICORT 160-4.5 MCG INHALER INHALATION SCH (20:38)
[2022-03-30] MEDS ORDERED: ARIPiprazole 5 MG TAB PO SCH (21:00)
[2022-03-30] MEDS ORDERED: ATORVASTATIN 40 MG TAB PO SCH (21:00)
[2022-03-31] MEDS: ACETAMINOPHEN TAB 325 MG TAB PO PRN (05:38)
[2022-03-31] MEDS ORDERED: PANTOPRAZOLE 40 MG TABLET PO SCH (07:30)
[2022-03-31 08:03] VITALS: BP 96/51; TEMP 98
[2022-03-31] MEDS: SYMBICORT 160-4.5 MCG INHALER INHALATION SCH (08:47)
[2022-03-31] MEDS ORDERED: hydroCHLOROthiazide 25 MG TAB PO SCH (09:00)
[2022-03-31] MEDS ORDERED: buPROPion 75 MG TAB PO SCH (09:00)
[2022-03-31] MEDS ORDERED: lamoTRIgine 100 MG TAB PO SCH (09:00)
[2022-03-31] MEDS: APIXABAN 5 MG TAB PO SCH (09:57)
[2022-03-31] MEDS: METOPROLOL TARTRATE 25 MG TAB PO SCH (09:57)
[2022-03-31] MEDS: lisinopriL 10 MG TAB PO SCH (09:58)
--- NOTE | 2022-03-31 11:52 | P.DS ---
Providers Attending physician: Demetrio Gagnon Primary care physician: [facility] Course: The patient's 61-year-old female who underwent pulmonary female isolation as well as linear ablation of left atrial septum for symptomatic paroxysmal atrial fibrillation. The patient tolerated the procedure well and had no complications overnight. GENERAL: Well-appearing, well-nourished and in no acute distress. NECK: Supple without JVD or thyromegaly. LUNGS: Breath sounds clear to auscultation bilaterally. Respiration equal and unlabored. No wheezes, rales or rhonchi. HEART: Regular rate and rhythm without murmurs, rubs or gallops. S1 and S2 heard. EXTREMITIES: Normal range of motion, no edema. No clubbing or cyanosis. Peripheral pulses intact and strong. Bilateral groin sites show no hematoma or drainage. IMPRESSION: Paroxysmal atrial fibrillation, status post pulmonary vein isolation and RFA of left atrial septum PLAN: Continue current medication regimen including anticoagulation and beta nicole Follow-up in office in 1 week I am dictating on behalf of Dr Demetrio Gagnon's history/physical and assessment/plan. Plan - Discharge Summary Discharge Rx Participant: No New Discharge Prescriptions: No Action Albuterol Nebulized [Ventolin Nebulized] 2.5 mg INHALATION Q6H PRN PRN Reason: Shortness Of Breath lamoTRIgine [LaMICtal] 100 mg PO QAM Fexofenadine HCl [Joanna Allergy] 180 mg PO QAM ARIPiprazole [Abilify] 5 mg PO HS diphenhydrAMINE [Benadryl] 25 mg PO DIRECTED PRN PRN Reason: ALLERGIES clonazePAM [KlonoPIN] 0.5 mg PO HS PRN PRN Reason: Anxiety Budesonide-Formot 160-4.5 Mcg [Symbicort 160-4.5 Mcg Inhaler] 2 puff INHALATION BID Albuterol Inhaler (Mhu) [Ventolin Inhaler] 2 puff INHALATION Q4-6H PRN PRN Reason: Shortness Of Breath Atorvastatin [Lipitor] 40 mg PO HS Omeprazole 20 mg PO BID hydroCHLOROthiazide 25 mg PO QAM Ibuprofen 200 - 400 mg PO Q6H PRN PRN Reason: Pain Trihexyphenidyl [Artane] 2 mg PO QAM buPROPion [Wellbutrin] 75 mg PO QAM lisinopriL 15 mg PO BID Loperamide [Imodium] 2 mg PO DAILY PRN PRN Reason: Diarrhea Metoprolol Tartrate 25 mg PO BID Apixaban [Eliquis] 5 mg PO BID Discharge Medication List ARIPiprazole [Abilify] 5 mg PO HS 09/23/15 [History] Albuterol Inhaler (Mhu) [Ventolin Inhaler] 2 puff INHALATION Q4-6H PRN 09/23/15 [History] Albuterol Nebulized [Ventolin Nebulized] 2.5 mg INHALATION Q6H PRN 09/23/15 [History] Budesonide-Formot 160-4.5 Mcg [Symbicort 160-4.5 Mcg Inhaler] 2 puff INHALATION BID 09/23/15 [History] Fexofenadine HCl [Joanna Allergy] 180 mg PO QAM 09/23/15 [History] clonazePAM [KlonoPIN] 0.5 mg PO HS PRN 09/23/15 [History] diphenhydrAMINE [Benadryl] 25 mg PO DIRECTED PRN 09/23/15 [History] lamoTRIgine [LaMICtal] 100 mg PO QAM 09/23/15 [History] Atorvastatin [Lipitor] 40 mg PO HS 01/03/18 [History] Omeprazole 20 mg PO BID 01/03/18 [History] Ibuprofen 200 - 400 mg PO Q6H PRN 12/05/21 [History] Loperamide [Imodium] 2 mg PO DAILY PRN 12/05/21 [History] Metoprolol Tartrate 25 mg PO BID 12/05/21 [History] Trihexyphenidyl [Artane] 2 mg PO QAM 12/05/21 [History] buPROPion [Wellbutrin] 75 mg PO QAM 12/05/21 [History] hydroCHLOROthiazide 25 mg PO QAM 12/05/21 [History] lisinopriL 15 mg PO BID 12/05/21 [History] Apixaban [Eliquis] 5 mg PO BID 01/02/22 [History]
--- NOTE | 2022-03-31 13:05 | CT ---
EXAMINATION TYPE: CT chest wo con DATE OF EXAM: 03/31/2022 COMPARISON: None HISTORY: Check for air in Mediastinum CT DLP: 274.00 mGycm. Automated Exposure Control for Dose Reduction was Utilized. TECHNIQUE: CT scan of the thorax is performed without IV contrast. FINDINGS: Limited field of view is submitted as part is a limited CT scan of the chest. There is no diagnostic evidence of pneumomediastinum. Subsegmental changes within the lungs are noted suggestive of atelectasis. No pleural effusion as visualized. Degenerative change of the spine. Tiny pericardial effusion. Atherosclerotic change aorta. No aneurysm. IMPRESSION: 1. No diagnostic evidence of pneumomediastinum. Bilateral subsegmental areas of consolidation and rosanne undglass consolidation most likely on the basis of atelectasis correlate clinically.
[2022-03-31 14:16] VITALS: PULSE 65
== END 2022-03-31 14:34 | disposition home or self-care (01) ==
LOC: CATHEP 07:40 → 6NMEDSUR 12:22 → CATHEP 03-31 14:34
PROVIDERS: ATTEND Internal Medicine Clinical Cardiac Electrophysiology
DX: I48.91 Unspecified atrial fibrillation (principal); E78.5 Hyperlipidemia, unspecified; G47.30 Sleep apnea, unspecified; I10 Essential (primary) hypertension; J45.909 Unspecified asthma, uncomplicated; K21.9 Gastro-esophageal reflux disease without esophagitis; K58.0 Irritable bowel syndrome with diarrhea; M19.90 Unspecified osteoarthritis, unspecified site; M79.7 Fibromyalgia; Z79.01 Long term (current) use of anticoagulants; Z79.51 Long term (current) use of inhaled steroids; Z87.891 Personal history of nicotine dependence; Z90.49 Acquired absence of other specified parts of digestive tract; Z20.822 Contact with and (suspected) exposure to COVID-19
CPT/HCPCS: 93662; 93656; 93657; 94640 ×2; 93609; 87635; 71250; C1894 ×2; C1769 ×5; C1760; C1730 ×2; C1759; C1893; C1733; C1766; J2250; J2001; Q9967; J1644

== ENCOUNTER 2023-03-08 18:34 | Emergency (ER) | payer BC ==
[2023-03-08 18:41] VITALS: BP 142/67; PULSE 94; RESP 18; TEMP 98
[2023-03-08 21:52] LABS: Basophils # (A) 0.1 k/uL (0-0.2); Basophils % (A) 1 %; Eosinophils # (A) 0.6 k/uL (0-0.7); Eosinophils % (A) 6 %; HCT 41.8 % (34.0-46.0); HGB 13.9 gm/dL (11.4-16.0); Lymphocytes # (A) 3.2 k/uL (1.0-4.8); Lymphocytes % (A) 36 %; MCH 30.3 pg (25.0-35.0); MCHC 33.3 g/dL (31.0-37.0); MCV 90.8 fL (80.0-100.0); Mean Platelet Volume 6.9; Monocytes # (A) 0.6 k/uL (0-1.0); Monocytes % (A) 7 %; Neutrophils # (A) 4.3 k/uL (1.3-7.7); Neutrophils % (A) 48 %; Platelet Count 238 k/uL (150-450); RDW 12.9 % (11.5-15.5); WBC 8.9 k/uL (3.8-10.6)
--- NOTE | 2023-03-08 22:00 | CT ---
EXAMINATION TYPE: CT abdomen pelvis wo con DATE OF EXAM: 03/08/2023 COMPARISON: none HISTORY: flank pain CT DLP: 998.4 mGycm Examination of the solid and hollow viscera is limited given the lack of contrast. FINDINGS: LUNG BASES: No evidence for nodule. No evidence for infiltrate. LIVER/GB: The gallbladder surgically absent. The urinary disease No space-occupying hepatic lesion. PANCREAS: No pancreatic mass identified. No inflammatory process seen. SPLEEN: No evidence for splenomegaly. No intrasplenic lesions seen. ADRENALS: No adrenal nodules identified. No evidence for thickening. KIDNEYS: No evidence for renal mass. No nephrolithiasis. No hydronephrosis. BOWEL: Appendix has a normal appearance. No evidence of bowel obstruction. No inflammatory process. Lymph nodes: No evidence for adenopathy greater than 1 cm. Abdominal aorta: Atheromatous changes seen. No evidence for aneurysm. Genital organs: The uterus is surgically absent. Other: No significant abnormality. IMPRESSION: NO ACUTE INTRA-ABDOMINAL PROCESS.
[2023-03-08 22:04] LABS: Appearance,Urine Clear (Clear); Bilirubin,Urine Negative (Negative); Blood,Urine Negative (Negative); Color,Urine Light Yellow; Glucose,Urine (UA) Negative (Negative); Ketones,Urine Negative (Negative); Leukocyte Esterase,Urine Moderate (Negative); Mucus,Urine Rare /hpf; Nitrite,Urine Negative (Negative); PH, Urine 5.5 (5.0-8.0); Protein,Urine Negative (Negative); RBC,Urine 1 /hpf (0-5); Specific Gravity,Urine 1.007 (1.001-1.035); Urobilinogen,Urine <2.0 mg/dL (<2.0); WBC,Urine 3 /hpf (0-5)
[2023-03-08] MEDS ORDERED: SODIUM CHLORIDE 0.9% 1,000 ML IV ONE (22:20)
[2023-03-08] MEDS ORDERED: KETOROLAC 15 MG/ML 1 ML VIAL IVP STA (22:21)
[2023-03-08 22:37] LABS: ALT 31 U/L (4-34); AST 26 U/L (14-36); African American GFR (CKD) >90 (>60 ml/min/1.73 sqM); Albumin 3.9 g/dL (3.5-5.0); Alkaline Phosphatase 70 U/L (38-126); Anion Gap 8 mmol/L; Blood Urea Nitrogen 13 mg/dL (7-17); Calcium 9.3 mg/dL (8.4-10.2); Carbon Dioxide 24 mmol/L (22-30); Chloride 104 mmol/L (98-107); Glucose 92 mg/dL (74-99); Non-African American GFR(CKD) 85 (>60 ml/min/1.73 sqM); Potassium 4.6 mmol/L (3.5-5.1); Sodium 136 mmol/L (137-145); Total Bilirubin 0.4 mg/dL (0.2-1.3); Total Protein 6.2 g/dL (6.3-8.2)
--- NOTE | 2023-03-08 23:12 | ED ---
General Adult HPI - General Chief complaint: Back Pain/Injury Stated complaint: Left side pain Time Seen by Provider: 03/08/23 21:02 Source: patient, RN notes reviewed Limitations: no limitations - History of Present Illness Initial comments: 62-year-old female with no significant past medical history presents the emergency department with a chief complaint of left-sided flank pain. She reports the pain and sensation of feeling "fizzy. " She reports the pain started approximately 1 week over is progressively gotten worse. She reports she feels the sensation even at rest. She denies any accompanied symptoms of fever, fatigue, chills, nausea, vomiting, dysuria, hematuria. She denies a history of kidney stones. - Related Data Home Medications Medication Instructions Recorded Confirmed ARIPiprazole [Abilify] 5 mg PO HS 09/23/15 03/30/22 Albuterol Inhaler [Ventolin 2 puff INHALATION Q4-6H PRN 09/23/15 03/30/22 Inhaler] Albuterol Nebulized [Ventolin 2.5 mg INHALATION Q6H PRN 09/23/15 03/30/22 Nebulized] Budesonide-Formot 160-4.5 Mcg 2 puff INHALATION BID 09/23/15 03/30/22 [Symbicort 160-4.5 Mcg Inhaler] Fexofenadine HCl [Joanna Allergy] 180 mg PO QAM 09/23/15 03/30/22 clonazePAM [KlonoPIN] 0.5 mg PO HS PRN 09/23/15 03/30/22 diphenhydrAMINE [Benadryl] 25 mg PO DIRECTED PRN 09/23/15 03/30/22 lamoTRIgine [LaMICtal] 100 mg PO QAM 09/23/15 03/30/22 Atorvastatin [Lipitor] 40 mg PO HS 01/03/18 03/30/22 Omeprazole 20 mg PO BID 01/03/18 03/30/22 Ibuprofen 200 - 400 mg PO Q6H PRN 12/05/21 03/30/22 Loperamide [Imodium] 2 mg PO DAILY PRN 12/05/21 03/30/22 Metoprolol Tartrate 25 mg PO BID 12/05/21 03/30/22 Trihexyphenidyl [Artane] 2 mg PO QAM 12/05/21 03/30/22 buPROPion [Wellbutrin] 75 mg PO QAM 12/05/21 03/30/22 hydroCHLOROthiazide 25 mg PO QAM 12/05/21 03/30/22 lisinopriL 15 mg PO BID 12/05/21 03/30/22 Apixaban [Eliquis] 5 mg PO BID 01/02/22 03/30/22 Allergies Allergy/AdvReac Type Severity Reaction Status Date / Time cefuroxime axetil Allergy Anaphylaxis Verified 03/24/22 15:03 [From Ceftin] moxifloxacin HCl Allergy Rash/Hives Verified 03/24/22 15:03 [From Avelox] tioconazole Allergy Rash/Hives Verified 03/24/22 15:03 [From Monistat 1 (tioconazole)] Review of Systems ROS Statement: Those systems with pertinent positive or pertinent negative responses have been documented in the HPI. ROS Other: All systems not noted in ROS Statement are negative. Past Medical History Past Medical History: Atrial Fibrillation, Asthma, Fibromyalgia, GERD/Reflux, Hyperlipidemia, Hypertension, Osteoarthritis (OA), Sleep Apnea/CPAP/BIPAP Additional Past Medical History / Comment(s): Hx sinusititis with fluid on the ear, ulcers, IBS, degenerative tendonistis, bursitis, neuropathy. History of Any Multi-Drug Resistant Organisms: None Reported Past Surgical History: Section, Cholecystectomy, Hernia Repair, Hystere ctomy, Orthopedic Surgery Additional Past Surgical History / Comment(s): Section X3, sinus surgery, foot surgery, colonoscopy, D&C. carpel tunnel sx. Past Anesthesia/Blood Transfusion Reactions: No Reported Reaction Additional Past Anesthesia/Blood Transfusion Reaction / Comment(s): AFTER SPINAL ANESTHESIA ONCE, NEEDED BLOOD PATCH Past Psychological History: Anxiety, Depression Smoking Status: Former smoker Past Alcohol Use History: Occasional Past Drug Use History: None Reported - Past Family History Mother Family Medical History: No Reported History General Exam Limitations: no limitations General appearance: alert, in no apparent distress Head exam: Present: atraumatic, normocephalic, normal inspection Eye exam: Present: normal appearance, PERRL, EOMI. Absent: scleral icterus, conjunctival injection, periorbital swelling ENT exam: Present: normal exam, mucous membranes moist Neck exam: Present: normal inspection. Absent: tenderness, meningismus, lymphadenopathy Respiratory exam: Present: normal lung sounds bilaterally. Absent: respiratory distress, wheezes, rales, rhonchi, stridor Cardiovascular Exam: Present: regular rate, normal rhythm, normal heart sounds. Absent: systolic murmur, diastolic murmur, rubs, gallop, clicks GI/Abdominal exam: Present: soft, normal bowel sounds. Absent: distended, tenderness, guarding, rebound, rigid Extremities exam: Present: normal inspection, full ROM, normal capillary refill. Absent: tenderness, pedal edema, joint swelling, calf tenderness Back exam: Present: normal inspection Neurological exam: Present: alert, oriented X3, CN II-XII intact Psychiatric exam: Present: normal affect, normal mood Skin exam: Present: warm, dry, intact, normal color. Absent: rash Course Vital Signs 03/08/23 18:39 Temperature 98.0 F Pulse Rate 94 Respiratory 18 Rate Blood Pressure 142/67 O2 Sat by Pulse 97 Oximetry Medical Decision Making - Medical Decision Making Was pt. sent in by a medical professional or institution (, PA, PLATE PAINTER APPRENTICE, urgent care, hospital, or penitentiary...) When possible be specific @ -[No] Did you speak to anyone other than the patient for history (EMS, parent, family, police, friend...)? What history was obtained from this source @ -[No] Did you review nursing and triage notes (agree or disagree)? Why? @ -[I reviewed and agree with nursing and triage notes] Were old charts reviewed (outside hosp., previous admission, EMS record, old EKG, old radiological studies, urgent care reports/EKG's, penitentiary records)? Report findings @ -[No old charts were reviewed] Differential Diagnosis (chest pain, altered mental status, abdominal pain women, abdominal pain men, vaginal bleeding, weakness, fever, dyspnea, syncope, headache, dizziness, GI bleed, back pain, seizure, CVA, palpatations, mental health, musculoskeletal)? @ -[not applicable] EKG interpreted by me (3pts min.). @ -[As above] X-rays interpreted by me (1pt min.). @ -[None done] CT interpreted by me (1pt min.). @ -[CT negative for any intra-abdominal process no evidence of nephrolithiasis or hydronephrosis U/S interpreted by me (1pt. min.). @ -[None done] What testing was considered but not performed or refused? (CT, X-rays, U/S, labs)? Why? @ -[None] What meds were considered but not given or refused? Why? @ -[None] Did you discuss the management of the patient with other professionals (professionals i.e. DrVíctor, PA, PLATE PAINTER APPRENTICE, lab, RT, psych nurse, director social welfare, party plan dealer, teacher, complaint investigations officer, shelter case manager)? Give summary @ -[No] Was smoking cessation discussed for >3mins.? @ -[No] Was critical care preformed (if so, how long)? @ -[No] Were there social determinants of health that impacted care today? How? (Homelessness, low income, unemployed, alcoholism, drug addiction, transportation, low edu. Level, literacy, decrease access to med. care, penitentiary, rehab)? @ -[No] Was there de-escalation of care discussed even if they declined (Discuss DNR or withdrawal of care, Hospice)? DNR status @ -[No] What co-morbidities impacted this encounter? (DM, HTN, Smoking, COPD, CAD, Cancer, CVA, ARF, Chemo, Hep., AIDS, mental health diagnosis, sleep apnea, morbid obesity)? @ -[None] Was patient admitted / discharged? Hospital course, mention meds given and rou te, prescriptions, significant lab abnormalities, going to OR and other pertinent info. @ - Discharged. This is a 62-year-old female who presents to the emergency department with left flank problem. Patient had a thorough history and physical exam performed, physical exam is essentially unremarkable heart rate regular rate and rhythm, lungs clear to auscultation bilaterally abdomen is soft and non-tender. Patient had lab work and imaging performed which were esse ntially negative. She was given Toradol with mild symptomatic relief on the ED. I discussed the results in detail with the patient verbalized understanding and all questions were addressed. Return precautions were discussed at length. She was strongly encouraged to follow up with her PCP in 1-2 days. She was discharged in stable condition. Case discussed with JOY Romo who agrees with plan of care Undiagnosed new problem with uncertain prognosis? @ -[No] Drug Therapy requiring intensive monitoring for toxicity (Heparin, Nitro, Insulin, Cardizem)? @ -[No] Were any procedures done? @ -[No] Diagnosis/symptom? @ -acute left flank pain Acute, or Chronic, or Acute on Chronic? @ -acute Uncomplicated (without systemic symptoms) or Complicated (systemic symptoms)? @ -uncomplicated Side effects of treatment? @ -[No] Exacerbation, Progression, or Severe Exacerbation? @ -[No] Poses a threat to life or bodily function? How? (Chest pain, [place], [place], pneumonia, PE, COPD, DKA, ARF, appy, cholecystitis, CVA, Diverticulitis, Homicidal, Suicidal, threat to staff... and all critical care pts) @ -low likelihood - Lab Data Result diagrams: 03/08/23 21:30 03/08/23 21:30 Lab Results 03/08/23 03/08/23 03/08/23 Range/Units 21:30 21:30 21:30 WBC 8.9 (3.8-10.6) k/uL RBC 4.60 (3.80-5.40) m/uL Hgb 13.9 (11.4-16.0) gm/dL Hct 41.8 (34.0-46.0) % MCV 90.8 (80.0-100.0) fL MCH 30.3 (25.0-35.0) pg MCHC 33.3 (31.0-37.0) g/dL RDW 12.9 (11.5-15.5) % Plt Count 238 (150-450) k/uL MPV 6.9 Neutrophils % 48 % Lymphocytes % 36 % Monocytes % 7 % Eosinophils % 6 % Basophils % 1 % Neutrophils # 4.3 (1.3-7.7) k/uL Lymphocytes # 3.2 (1.0-4.8) k/uL Monocytes # 0.6 (0-1.0) k/uL Eosinophils # 0.6 (0-0.7) k/uL Basophils # 0.1 (0-0.2) k/uL Sodium 136 L (137-145) mmol/L Potassium 4.6 (3.5-5.1) mmol/L Chloride 104 (98-107) mmol/L Carbon Dioxide 24 (22-30) mmol/L Anion Gap 8 mmol/L BUN 13 (7-17) mg/dL Creatinine 0.76 (0.52-1.04) mg/dL Est GFR (CKD-EPI)AfAm >90 (>60 ml/min/1.73 sqM) Est GFR (CKD-EPI)NonAf 85 (>60 ml/min/1.73 sqM) Glucose 92 (74-99) mg/dL Calcium 9.3 (8.4-10.2) mg/dL Total Bilirubin 0.4 (0.2-1.3) mg/dL AST 26 (14-36) U/L ALT 31 (4-34) U/L Alkaline Phosphatase 70 (38-126) U/L Total Protein 6.2 L (6.3-8.2) g/dL Albumin 3.9 (3.5-5.0) g/dL Urine Color Light Yellow Urine Appearance Clear (Clear) Urine pH 5.5 (5.0-8.0) Ur Specific [place] 1.007 (1.001-1.035) Urine Protein Negative (Negative) Urine Glucose (UA) Negative (Negative) Urine Ketones Negative (Negative) Urine Blood Negative (Negative) Urine Nitrite Negative (Negative) Urine Bilirubin Negative (Negative) Urine Urobilinogen <2.0 (<2.0) mg/dL Ur Leukocyte Esterase Moderate H (Negative) Urine RBC 1 (0-5) /hpf Urine WBC 3 (0-5) /hpf Urine Mucus Rare H (None) /hpf Disposition Clinical Impression: Mid back pain Disposition: HOME SELF-CARE Condition: Stable Instructions (If sedation given, give patient instructions): Acute Low Back Pain (ED) Additional Instructions: Please return to the nearest emergency department symptoms worsen or persist Is patient prescribed a controlled substance at d/c from ED?: No Referrals: Alvarado Rousseau MD [Primary Care Provider] - 1-2 days Time of Disposition: 23:13
== END 2023-03-08 23:31 | disposition home or self-care (01) ==
LOC: EC 18:34
DX: M54.6 Pain in thoracic spine (principal); I10 Essential (primary) hypertension; E78.5 Hyperlipidemia, unspecified; J45.909 Unspecified asthma, uncomplicated; I48.91 Unspecified atrial fibrillation; K21.9 Gastro-esophageal reflux disease without esophagitis; M79.7 Fibromyalgia; M19.90 Unspecified osteoarthritis, unspecified site; F32.A Depression, unspecified; F41.9 Anxiety disorder, unspecified; Z87.891 Personal history of nicotine dependence; Z79.01 Long term (current) use of anticoagulants; Z79.899 Other long term (current) drug therapy; Z88.1 Allergy status to other antibiotic agents
CPT/HCPCS: 36415; 80053; 85025; 81001; 74176; 99284; 96374; J1885

== ENCOUNTER → 2023-03-09 | Outpatient (CLI) | payer BC ==
--- NOTE | 2023-03-10 07:52 | MM ---
Reason for Exam: Screening (asymptomatic). Last mammogram was performed 1 year(s) and 2 month(s) ago. Patient History: Menarche at age 12. First Full-Term at age 31. Late child-bearing (after 30). Hysterectomy at age 49. Postmenopausal. Patient used Hormonal Contraceptives for 2 years. Estrogen and Progesterone for 6 months. Risk Values: Treasure 5 year model risk: 2.1%. NCI Lifetime model risk: 9.4%. Prior Study Comparison: 07/08/2018 Bilateral Screening Mammogram, [facility]. 08/02/2020 Bilateral Screening Mammogram, [facility]. 01/02/2022 Bilateral Screening Mammogram, [facility]. Tissue Density: There are scattered fibroglandular densities. Findings: Analyzed By CAD. There is no suspicious group of microcalcifications or new suspicious mass in either breast. Stable benign calcifications within both breasts. Overall Assessment: Benign, BI-RAD 2 Management: Screening Mammogram of both breasts in 1 year. A clinical breast exam by your physician is recommended on an annual basis and results should be correlated with mammographic findings. Electronically signed and approved by: Marck Prabhaakr D.O.
== END | disposition home or self-care (01) ==
LOC: RADMAMWWP 16:52
PROVIDERS: ATTEND Family Medicine
DX: Z12.31 Encounter for screening mammogram for malignant neoplasm of breast (principal); Z78.0 Asymptomatic menopausal state
CPT/HCPCS: 77063; 77067

== ENCOUNTER 2023-11-01 16:30 | Emergency (ER) | payer BC ==
[2023-11-01 17:53] VITALS: TEMP 98.4
[2023-11-01 19:24] LABS: HCT 43.7 % (34.0-46.0); HGB 14.5 gm/dL (11.4-16.0); MCH 29.2 pg (25.0-35.0); MCHC 33.2 g/dL (31.0-37.0); MCV 87.8 fL (80.0-100.0); Mean Platelet Volume 7.9; Platelet Count 231 k/uL (150-450); RBC 4.97 m/uL (3.80-5.40); RDW 13.2 % (11.5-15.5); WBC 9.3 k/uL (3.8-10.6)
[2023-11-01 19:32] LABS: ALT 33 U/L (4-34); AST 30 U/L (14-36); African American GFR (CKD) 83 (>60 ml/min/1.73 sqM); Albumin 4.3 g/dL (3.5-5.0); Alkaline Phosphatase 81 U/L (38-126); Anion Gap 15 mmol/L; Blood Urea Nitrogen 14 mg/dL (7-17); Calcium 9.7 mg/dL (8.4-10.2); Carbon Dioxide 20 mmol/L (22-30); Chloride 102 mmol/L (98-107); Glucose 92 mg/dL (74-99); Non-African American GFR(CKD) 72 (>60 ml/min/1.73 sqM); Potassium 4.1 mmol/L (3.5-5.1); Sodium 137 mmol/L (137-145); Total Bilirubin 0.6 mg/dL (0.2-1.3); Total Protein 6.5 g/dL (6.3-8.2)
[2023-11-01 19:37] LABS: Partial Thromboplastin Time 22.5 sec (22.0-30.0); Prothrombin Time 10.7 sec (10.0-12.5)
[2023-11-01] MEDS ORDERED: OXYMETAZOLINE 0.05% NASL SPRAY 1 SPRAY BOTTLE NASAL STA (19:45)
--- NOTE | 2023-11-01 19:47 | ED ---
ENT HPI - General Chief complaint: ENT Stated complaint: nose bleed on thinners Time Seen by Provider: 11/01/23 18:25 Source: patient Mode of arrival: ambulatory Limitations: no limitations - History of Present Illness Initial comments: 62-year-old female presenting with chief complaint of nosebleed. Patient has history of recurrent nosebleeds, she states that she currently has a nasal polyp and that's when her nosebleeds are recurrent. She states that today she had one that lasted over an hour. Patient is on eliquis. No active bleeding upon arri molly to the ER. No lightheadedness or dizziness. No headache. No injury or trauma. - Related Data Home Medications Medication Instructions Recorded Confirmed ARIPiprazole [Abilify] 5 mg PO HS 09/23/15 03/30/22 Albuterol Inhaler [Ventolin 2 puff INHALATION Q4-6H PRN 09/23/15 03/30/22 Inhaler] Albuterol Nebulized [Ventolin 2.5 mg INHALATION Q6H PRN 09/23/15 03/30/22 Nebulized] Budesonide-Formot 160-4.5 Mcg 2 puff INHALATION BID 09/23/15 03/30/22 [Symbicort 160-4.5 Mcg Inhaler] Fexofenadine HCl [Joanna Allergy] 180 mg PO QAM 09/23/15 03/30/22 clonazePAM [KlonoPIN] 0.5 mg PO HS PRN 09/23/15 03/30/22 diphenhydrAMINE [Benadryl] 25 mg PO DIRECTED PRN 09/23/15 03/30/22 lamoTRIgine [LaMICtal] 100 mg PO QAM 09/23/15 03/30/22 Atorvastatin [Lipitor] 40 mg PO HS 01/03/18 03/30/22 Omeprazole 20 mg PO BID 01/03/18 03/30/22 Ibuprofen 200 - 400 mg PO Q6H PRN 12/05/21 03/30/22 Loperamide [Imodium] 2 mg PO DAILY PRN 12/05/21 03/30/22 Metoprolol Tartrate 25 mg PO BID 12/05/21 03/30/22 Trihexyphenidyl [Artane] 2 mg PO QAM 12/05/21 03/30/22 buPROPion [Wellbutrin] 75 mg PO QAM 12/05/21 03/30/22 hydroCHLOROthiazide 25 mg PO QAM 12/05/21 03/30/22 lisinopriL 15 mg PO BID 12/05/21 03/30/22 Apixaban [Eliquis] 5 mg PO BID 01/02/22 03/30/22 Allergies Allergy/AdvReac Type Severity Reaction Status Date / Time cefuroxime axetil Allergy Anaphylaxis Verified 11/01/23 17:40 [From Ceftin] moxifloxacin HCl Allergy Rash/Hives Verified 11/01/23 17:40 [From Avelox] tioconazole Allergy Rash/Hives Verified 11/01/23 17:40 [From Monistat 1 (tioconazole)] Review of Systems ROS Statement: Those systems with pertinent positive or pertinent negative responses have been documented in the HPI. ROS Other: All systems not noted in ROS Statement are negative. Past Medical History Past Medical History: Atrial Fibrillation, Asthma, Fibromyalgia, GERD/Reflux, H yperlipidemia, Hypertension, Osteoarthritis (OA), Sleep Apnea/CPAP/BIPAP Additional Past Medical History / Comment(s): Hx sinusititis with fluid on the ear, ulcers, IBS, degenerative tendonistis, bursitis, neuropathy. History of Any Multi-Drug Resistant Organisms: None Reported Past Surgical History: Section, Cholecystectomy, Hernia Repair, Hysterectomy, Orthopedic Surgery Additional Past Surgical History / Comment(s): Section X3, sinus surgery, foot surgery, colonoscopy, D&C. carpel tunnel sx. Past Anesthesia/Blood Transfusion Reactions: No Reported Reaction Additional Past Anesthesia/Blood Transfusion Reaction / Comment(s): AFTER SPINAL ANESTHESIA ONCE, NEEDED BLOOD PATCH Past Psychological History: Anxiety, Depression Smoking Status: Former smoker Past Alcohol Use History: Occasional Past Drug Use History: None Reported - Past Family History Mother Family Medical History: No Reported History General Exam Limitations: no limitations General appearance: alert, in no apparent distress Head exam: Present: atraumatic, normocephalic, normal inspection Eye exam: Present: normal appearance, EOMI ENT exam: Present: normal exam, other (Normal examination of the nostril) Neck exam: Present: normal inspection, full ROM Respiratory exam: Absent: respiratory distress Neurological exam: Present: alert, oriented X3 Psychiatric exam: Present: normal affect, normal mood Skin exam: Present: warm, dry, intact, normal color. Absent: rash Course Vital Signs 11/01/23 11/01/23 17:37 20:00 Temperature 98.4 F Pulse Rate 91 85 Respiratory 16 18 Rate Blood Pressure 133/74 131/82 O2 Sat by Pulse 96 95 Oximetry Medical Decision Making - Medical Decision Making Was pt. sent in by a medical professional or institution (, LICO, CUSTOMER ADVISOR, urgent care, hospital, or custodial...) When possible be specific @ -No Did you speak to anyone other than the patient for history (EMS, parent, family, police, friend...)? What history was obtained from this source @ -No Did you review nursing and triage notes (agree or disagree)? Why? @ -I reviewed and agree with nursing and triage notes Were old charts reviewed (outside hosp., previous admission, EMS record, old EKG, old radiological studies, urgent care reports/EKG's, custodial records)? Report findings @ -No old charts were reviewed Differential Diagnosis (chest pain, altered mental status, abdominal pain women, abdominal pain men, vaginal bleeding, weakness, fever, dyspnea, syncope, headache, dizziness, GI bleed, back pain, seizure, CVA, palpatations, mental health, musculoskeletal)? @ -not applicable EKG interpreted by me (3pts min.). @ -As above X-rays interpreted by me (1pt min.). @ -None done CT interpreted by me (1pt min.). @ -None done U/S interpreted by me (1pt. min.). @ -None done What testing was considered but not performed or refused? (CT, X-rays, U/S, labs)? Why? @ -None What meds were considered but not given or refused? Why? @ -None Did you discuss the management of the patient with other professionals (professionals i.e. , LICO, CUSTOMER ADVISOR, lab, RT, psych nurse, social sciences department chair, hay stacker, teacher, commanding officer garage, therapeutic case manager)? Give summary @ -No Was smoking cessation discussed for >3mins.? @ -No Was critical care preformed (if so, how long)? @ -No Were there social determinants of health that impacted care today? How? (Homelessness, low income, unemployed, alcoholism, drug addiction, transportation, low edu. Level, literacy, decrease access to med. care, halfway, rehab)? @ -No Was there de-escalation of care discussed even if they declined (Discuss DNR or withdrawal of care, Hospice)? DNR status @ -No What co-morbidities impacted this encounter? (DM, HTN, Smoking, COPD, CAD, Cancer, CVA, ARF, Chemo, Hep., AIDS, mental health diagnosis, sleep apnea, morbid obesity)? @ -None Was patient admitted / discharged? Hospital course, mention meds given and r oute, prescriptions, significant lab abnormalities, going to OR and other pertinent info. @ -62-year-old female presenting with chief complaint of nosebleed that lasted over an hour. No active bleeding arrival to ER. Patient is currently on eliquis. She was alarmed at the length of time of the nosebleed and sought evaluation in the ER. Normal examination of the nostril. Lab work is grossly negative. Patient has no recurrence of bleeding. She is sent home with a nasal clamp and Afrin nasal spray and instructions on how to stop nosebleed at home. Educated on return parameters. Follow-up with her ENT. Follow-up with PCP. Report back to ER with any new or worsening symptoms. Discussed return parameters and answered all questions. Patient conveyed verbal understanding and agreed to the plan. I discussed this case in detail with my attending Dr. Mantilla Undiagnosed new problem with uncertain prognosis? @ -No Drug Therapy requiring intensive monitoring for toxicity (Heparin, Nitro, Insuli n, Cardizem)? @ -No Were any procedures done? @ -No Diagnosis/symptom? @ -Epistaxis Acute, or Chronic, or Acute on Chronic? @ -Acute Uncomplicated (without systemic symptoms) or Complicated (systemic symptoms)? @ -Uncomplicated Side effects of treatment? @ -No Exacerbation, Progression, or Severe Exacerbation? @ -No Poses a threat to life or bodily function? How? (Chest pain, USA, [place], pneumonia, PE, COPD, DKA, ARF, appy, cholecystitis, CVA, Diverticulitis, Homicidal, Suicidal, threat to staff... and all critical care pts) @ -No - Lab Data Result diagrams: 11/01/23 19:07 11/01/23 19:07 Lab Results 12/04/23 12/04/23 12/04/23 Range/Units 19:07 19:07 19:07 WBC 9.3 (3.8-10.6) k/uL RBC 4.97 (3.80-5.40) m/uL Hgb 14.5 (11.4-16.0) gm/dL Hct 43.7 (34.0-46.0) % MCV 87.8 (80.0-100.0) fL MCH 29.2 (25.0-35.0) pg MCHC 33.2 (31.0-37.0) g/dL RDW 13.2 (11.5-15.5) % Plt Count 231 (150-450) k/uL MPV 7.9 PT 10.7 (10.0-12.5) sec INR 1.0 (<1.2) APTT 22.5 (22.0-30.0) sec Sodium 137 (137-145) mmol/L Potassium 4.1 (3.5-5.1) mmol/L Chloride 102 (98-107) mmol/L Carbon Dioxide 20 L (22-30) mmol/L Anion Gap 15 mmol/L BUN 14 (7-17) mg/dL Creatinine 0.87 (0.52-1.04) mg/dL Est GFR (CKD-EPI)AfAm 83 (>60 ml/min/1.73 sqM) Est GFR (CKD-EPI)NonAf 72 (>60 ml/min/1.73 sqM) Glucose 92 (74-99) mg/dL Calcium 9.7 (8.4-10.2) mg/dL Total Bilirubin 0.6 (0.2-1.3) mg/dL AST 30 (14-36) U/L ALT 33 (4-34) U/L Alkaline Phosphatase 81 (38-126) U/L Total Protein 6.5 (6.3-8.2) g/dL Albumin 4.3 (3.5-5.0) g/dL Disposition Clinical Impression: Epistaxis Disposition: HOME SELF-CARE Condition: Good Instructions (If sedation given, give patient instructions): Nosebleed (ED) Additional Instructions: Follow-up with PCP. Follow-up with your ENT. Report back to ER with any new or worsening symptoms. For recurrent nosebleeds you can try 2 sprays of Afrin into the affected nostril followed by a 20 minutes of direct pressure with nasal clamp. Is patient prescribed a controlled substance at d/c from ED?: No Referrals: Alvarado Rousseau MD [Primary Care Provider] - 1-2 days Time of Disposition: 19:46
[2023-11-01 20:05] VITALS: BP 131/82; PULSE 85; RESP 18
== END 2023-11-01 20:01 | disposition home or self-care (01) ==
LOC: EC 16:30
DX: R04.0 Epistaxis (principal); I48.91 Unspecified atrial fibrillation; J45.909 Unspecified asthma, uncomplicated; K21.9 Gastro-esophageal reflux disease without esophagitis; E78.5 Hyperlipidemia, unspecified; I10 Essential (primary) hypertension; M19.90 Unspecified osteoarthritis, unspecified site; G47.30 Sleep apnea, unspecified; F41.9 Anxiety disorder, unspecified; F32.A Depression, unspecified; Z87.891 Personal history of nicotine dependence; Z79.51 Long term (current) use of inhaled steroids; Z79.899 Other long term (current) drug therapy; Z79.1 Long term (current) use of non-steroidal anti-inflammatories (NSAID); Z79.01 Long term (current) use of anticoagulants
CPT/HCPCS: 36415; 80053; 85027; 85610; 85730; 99283

== ENCOUNTER → 2024-05-05 | Outpatient (CLI) | payer BC ==
--- NOTE | 2024-05-08 13:21 | MM ---
Reason for Exam: Screening (asymptomatic). Last mammogram was performed 1 year(s) and 2 month(s) ago. Patient History: Menarche at age 12. First Full-Term at age 31. Late child-bearing (after 30). Hysterectomy at age 49. Postmenopausal. Patient used Hormonal Contraceptives for 2 years. Estrogen and Progesterone for 6 months. Risk Values: Treasure 5 year model risk: 2.2%. NCI Lifetime model risk: 9.1%. Prior Study Comparison: 08/02/2020 Bilateral Screening Mammogram, [facility]. 01/02/2022 Bilateral Screening Mammogram, [facility]. 03/09/2023 Bilateral MG 3D screening mammo w/cad, [facility]. Tissue Density: There are scattered areas of fibroglandular density. Findings: Analyzed By CAD. There is no suspicious group of microcalcifications or new suspicious mass in either breast. Overall Assessment: Negative, BI-RAD 1 Management: Screening Mammogram of both breasts in 1 year. . Patient should continue monthly self-breast exams. A clinical breast exam by your physician is recommended on an annual basis. This exam should not preclude additional follow-up of suspicious palpable abnormalities. Note on Treasure scores and lifetime risk: 1. A Treasure score greater than 3% is considered moderate risk. If this is the case, consider specialist referral to assess eligibility for a risk reducing agent. 2. If overall lifetime risk for the development of breast cancer is 20% or higher, the patient may qualify for future screening with alternating mammogram and breast MRI. Electronically signed and approved by: Jerry Tracy M.D. Radiologis
== END | disposition home or self-care (01) ==
LOC: RADMAMWWP 14:09
PROVIDERS: ATTEND Family Medicine
DX: Z12.31 Encounter for screening mammogram for malignant neoplasm of breast (principal); Z78.0 Asymptomatic menopausal state
CPT/HCPCS: 77063; 77067

== ENCOUNTER → 2025-04-20 | Outpatient (CLI) | payer BC ==
--- NOTE | 2025-04-20 13:12 | MM ---
Reason for Exam: Clinical finding. Last screening mammogram was performed 11 month(s) ago. Indicated Problems: Pain of the left side for 2 Month(s). Patient History: Menarche at age 12. First Full-Term at age 31. Late child-bearing (after 30). Hysterectomy at age 49. Postmenopausal. Patient used Hormonal Contraceptives for 2 years. Estrogen and Progesterone for 6 months. Risk Values: Treasure 5 year model risk: 2.2%. NCI Lifetime model risk: 8.9%. Prior Study Comparison: 08/02/2020 Bilateral Screening Mammogram, [facility]. 01/02/2022 Bilateral Screening Mammogram, [facility]. 03/09/2023 Bilateral MG 3D screening mammo w/cad, [facility]. 05/05/2024 Bilateral MG 3D screening mammo w/cad, [facility]. Tissue Density: The breasts are almost entirely fatty. Findings: Analyzed By CAD. No finding to correlate with patient's pain. Overall Assessment: Negative, BI-RAD 1 Management: Screening Mammogram of both breasts in 1 year. Results were given to the patient verbally at the time of exam. Patient should continue monthly self-breast exams. A clinical breast exam by your physician is recommended on an annual basis. This exam should not preclude additional follow-up of suspicious palpable abnormalities. Note on Treasure scores and lifetime risk: 1. A Treasure score greater than 3% is considered moderate risk. If this is the case, consider specialist referral to assess eligibility for a risk reducing agent. 2. If overall lifetime risk for the development of breast cancer is 20% or higher, the patient may qualify for future screening with alternating mammogram and breast MRI. [facility], , 04/20/2025 1:10 PM. Electronically signed and approved by: Jovan Moon DO
== END | disposition home or self-care (01) ==
LOC: RADMAMWWP 12:54
PROVIDERS: ATTEND Family Medicine
DX: N64.4 Mastodynia (principal); R92.313 Mammographic fatty tissue density, bilateral breasts; Z78.0 Asymptomatic menopausal state; Z92.0 Personal history of contraception
CPT/HCPCS: 77062; 77066

== ENCOUNTER 2025-05-23 22:55 | Emergency (ER) | payer BC ==
[2025-05-23 23:18] VITALS: RESP 18; TEMP 98.3
--- NOTE | 2025-05-23 23:38 | ED ---
Skin/Abscess/FB HPI - General Chief complaint: Skin/Abscess/Foreign Body Stated complaint: Rash Time Seen by Provider: 05/23/25 23:33 Source: patient, RN notes reviewed Mode of arrival: ambulatory Limitations: no limitations - History of Present Illness Initial comments: 64-year-old female presents emergency room with complaints of a rash of her abdomen that started this morning. Patient states that she woke up she felt a burning sensation near her umbilicus where she went to urgent care and was provided with antibiotics. She states that throughout the day the rash is worsened in size. She denies use of new soaps, lotions, detergents, medications or perfumes. States the area feels like it is burning. Denies pruritus of the area. She denies overall fevers, chills, nausea, vomiting. Is presenting for further evaluation. 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 - Related Data Home Medications Medication Instructions Recorded Confirmed ARIPiprazole [Abilify] 5 mg PO HS 09/23/15 03/30/22 Albuterol Inhaler [Ventolin 2 puff INHALATION Q4-6H PRN 09/23/15 03/30/22 Inhaler] Albuterol Nebulized [Ventolin 2.5 mg INHALATION Q6H PRN 09/23/15 03/30/22 Nebulized] Budesonide-Formot 160-4.5 Mcg 2 puff INHALATION BID 09/23/15 03/30/22 [Symbicort 160-4.5 Mcg Inhaler] Fexofenadine HCl [Joanna Allergy] 180 mg PO QAM 09/23/15 03/30/22 clonazePAM [KlonoPIN] 0.5 mg PO HS PRN 09/23/15 03/30/22 diphenhydrAMINE [Benadryl] 25 mg PO DIRECTED PRN 09/23/15 03/30/22 lamoTRIgine [LaMICtal] 100 mg PO QAM 09/23/15 03/30/22 Atorvastatin [Lipitor] 40 mg PO HS 01/03/18 03/30/22 Omeprazole 20 mg PO BID 01/03/18 03/30/22 Ibuprofen 200 - 400 mg PO Q6H PRN 12/05/21 03/30/22 Loperamide [Imodium] 2 mg PO DAILY PRN 12/05/21 03/30/22 Metoprolol Tartrate 25 mg PO BID 12/05/21 03/30/22 Trihexyphenidyl [Artane] 2 mg PO QAM 12/05/21 03/30/22 buPROPion [Wellbutrin] 75 mg PO QAM 12/05/21 03/30/22 hydroCHLOROthiazide 25 mg PO QAM 12/05/21 03/30/22 lisinopriL 15 mg PO BID 12/05/21 03/30/22 Apixaban [Eliquis] 5 mg PO BID 01/02/22 03/30/22 Previous Rx's Medication Instructions Recorded clindamycin HCL 300 mg PO QID #40 cap 05/23/25 Allergies Allergy/AdvReac Type Severity Reaction Status Date / Time cefuroxime axetil Allergy Anaphylaxis Verified 05/23/25 23:18 [From Ceftin] moxifloxacin HCl Allergy Rash/Hives Verified 05/23/25 23:18 [From Avelox] tioconazole Allergy Rash/Hives Verified 05/23/25 23:18 [From Monistat 1 (tioconazole)] Review of Systems ROS Statement: Those systems with pertinent positive or pertinent negative responses have been documented in the HPI. ROS Other: All systems not noted in ROS Statement are negative. Past Medical History Past Medical History: Atrial Fibrillation, Asthma, Fibromyalgia, GERD/Reflux, Hyperlipidemia, Hypertension, Osteoarthritis (OA), Sleep Apnea/CPAP/BIPAP Additional Past Medical History / Comment(s): Hx sinusititis with fluid on the ear, ulcers, IBS, degenerative tendonistis, bursitis, neuropathy. History of Any Multi-Drug Resistant Organisms: None Reported Past Surgical History: Section, Cholecystectomy, Hernia Repair, Hysterectomy, Orthopedic Surgery Additional Past Surgical History / Comment(s): Section X3, sinus surgery, foot surgery, colonoscopy, D&C. carpel tunnel sx. Past Anesthesia/Blood Transfusion Reactions: No Reported Reaction Additional Past Anesthesia/Blood Transfusion Reaction / Comment(s): AFTER SPINAL ANESTHESIA ONCE, NEEDED BLOOD PATCH Past Psychological History: Anxiety, Depression Smoking Status: Former smoker Past Alcohol Use History: Occasional Past Drug Use History: None Reported - Past Family History Mother Family Medical History: No Reported History General Exam Limitations: no limitations General appearance: alert, in no apparent distress Neck exam: Present: normal inspection. Absent: tenderness, meningismus, lymphadenopathy Respiratory exam: Present: normal lung sounds bilaterally. Absent: respiratory distress, wheezes, rales, rhonchi, stridor Cardiovascular Exam: Present: regular rate, normal rhythm, normal heart sounds. Absent: systolic murmur, diastolic murmur, rubs, gallop, clicks GI/Abdominal exam: Present: soft, normal bowel sounds. Absent: distended, tenderness, guarding, rebound, rigid Extremities exam: Present: normal inspection, full ROM, normal capillary refill. Absent: tenderness, pedal edema, joint swelling, calf tenderness Back exam: Present: normal inspection Skin exam: Present: warm, dry, rash Course Vital Signs 05/23/25 05/23/25 05/24/25 23:16 23:59 00:08 Temperature 98.3 F 98.3 F Pulse Rate 82 86 86 Respiratory 18 18 18 Rate Blood Pressure 149/54 152/64 152/64 O2 Sat by Pulse 97 97 97 Oximetry Medical Decision Making - Medical Decision Making Was pt. sent in by a medical professional or institution (, PA, HOG TENDER, urgent care, hospital, or fci...) When possible be specific @ -No Did you speak to anyone other than the patient for history (EMS, parent, family, police, friend...)? What history was obtained from this source @ -No Did you review nursing and triage notes (agree or disagree)? Why? @ -I reviewed and agree with nursing and triage notes Were old charts reviewed (outside hosp., previous admission, EMS record, old EKG, old radiological studies, urgent care reports/EKG's, fci records)? Report findings @ -No old charts were reviewed Differential Diagnosis (chest pain, altered mental status, abdominal pain women, abdominal pain men, vaginal bleeding, weakness, fever, dyspnea, syncope, headache, dizziness, GI bleed, back pain, seizure, CVA, palpatations, mental health, musculoskeletal)? @ -Cellulitis, shingles, contact dermatitis, urticaria, this list not all inclusive EKG interpreted by me (3pts min.). @ -none X-rays interpreted by me (1pt min.). @ -None done CT interpreted by me (1pt min.). @ -None done U/S interpreted by me (1pt. min.). @ -None done What testing was considered but not performed or refused? (CT, X-rays, U/S, labs)? Why? @ -None What meds were considered but not given or refused? Why? @ -None Did you discuss the management of the patient with other professionals (professionals i.e. , PA, HOG TENDER, lab, RT, psych nurse, social media intern, overlay operator, teacher, hydrographical technical officer, immigration case worker)? Give summary @ -No Was smoking cessation discussed for >3mins.? @ -No Was critical care preformed (if so, how long)? @ -No Were there social determinants of health that impacted care today? How? (Homelessness, low income, unemployed, alcoholism, drug addiction, transportation, low edu. Level, literacy, decrease access to med. care, intermediate, rehab)? @ -No Was there de-escalation of care discussed even if they declined (Discuss DNR or withdrawal of care, Hospice)? DNR status @ -No What co-morbidities impacted this encounter? (DM, HTN, Smoking, COPD, CAD, Cancer, CVA, ARF, Chemo, Hep., AIDS, mental health diagnosis, sleep apnea, morbid obesity)? @ -None Was patient admitted / discharged? Hospital course, mention meds given and rout e, prescriptions, significant lab abnormalities, going to OR and other pertinent info. @ Discharge. 64 female presenting with rash around the abdomen. Area appears to be infectious in nature. Patient's vitals are stable. Will defer lab testing at this time. She is provided with IM injection of penicillin and outpatient prescription for antibiotics. Recommend she continue antibiotics and follow-up with primary care provider next 1 to 3 days. Return parameters discussed. Case discussed with my attending Dr. Thomson Undiagnosed new problem with uncertain prognosis? @ -No Drug Therapy requiring intensive monitoring for toxicity (Heparin, Nitro, Insulin, Cardizem)? @ -No Were any procedures done? @ -No Diagnosis/symptom? @ -Cellulitis Acute, or Chronic, or Acute on Chronic? @ -Acute Uncomplicated (without systemic symptoms) or Complicated (systemic symptoms)? @ -Uncomplicated Side effects of treatment? @ -No Exacerbation, Progression, or Severe Exacerbation? @ -No Poses a threat to life or bodily function? How? (Chest pain, USA, [place], pneumonia, PE, COPD, DKA, ARF, appy, cholecystitis, CVA, Diverticulitis, Homicidal, Suicidal, threat to staff... and all critical care pts) @ -No Disposition Clinical Impression: Cellulitis Disposition: HOME SELF-CARE Condition: Good Instructions (If sedation given, give patient instructions): Cellulitis (ED) Additional Instructions: Please return to the Emergency Department if symptoms worsen or any other concerns. Please complete Bactrim and clindamycin as prescribed. Please follow-up with your primary care provider within the next 1 to 3 days for further evaluation. Prescriptions: clindamycin HCL 300 mg PO QID #40 cap Is patient prescribed a controlled substance at d/c from ED?: No Referrals: Alvarado Rousseau MD [Primary Care Provider] - 1-2 days Time of Disposition: 23:38
[2025-05-24] VITALS: BP 152/64; PULSE 86
[2025-05-24] MEDS: PENICILLIN G BENZATHINE 1,200,000 UNIT/2 ML SYRINGE IM STA (00:02)
[2025-05-24] MEDS: SULFAMETHOX-TMP 800-160MG 1 EACH TAB PO STA (00:02)
== END 2025-05-24 00:09 | disposition home or self-care (01) ==
LOC: EC 22:55
DX: L03.311 Cellulitis of abdominal wall (principal); Z87.891 Personal history of nicotine dependence; Z88.1 Allergy status to other antibiotic agents; Z88.3 Allergy status to other anti-infective agents
CPT/HCPCS: 99282 ×2; 96372 ×2; J0561